=== PATIENT | female | born 1945 | race Caucasian/White ===

== ENCOUNTER 2020-09-18 15:53 | Inpatient (IN) | payer MEDICARE, SELFPAY ==
[2020-09-18] VITALS (69 sets, daily range): BP systolic 146–202; BP diastolic 86–155; PULSE 69–121; RESP 10–29; TEMP 36.8; O2SAT 94–97
--- NOTE | 2020-09-18 15:45 | RT.EKG_ITS ---
APPROVED REPORT Exam: Resting ECG Reason for Exam: dizzy Patient Location: E HR:118 bpm ECG Measurements Heart Rate 118 AXIS WA 211 P 8 QRSd 86 QRS -39 QT 303 T 107 QTc 420 Conclusion Sinus tachycardia...rate> 99 Ventricular premature complex...V complex w/ short R-R interval Borderline prolonged WA interval...WA >207, V-rate 91-120 LVH with secondary repolarization abnormality...multi-LVH criteria, abnrm ST-T Anterior infarct, old...Q >40mS, abnormal ST-T, V2-V5. Sinus. LVH. PVCs. No STEMI. I have reviewed and interpreted ECG and agree with software generated interpretation.
[2020-09-18 16:25] LABS: Abs Immature Grans 0.02 10^3/uL (0.0-0.06); Absolute Basophil Count 0.04 10^3/uL (0.0-0.2); Absolute Eosinophil Count 0.02 10^3/uL (0.0-0.7); Absolute Lymphocyte Count 1.88 10^3/uL (1.2-3.4); Absolute Monocyte Count 0.63 10^3/uL (0.1-0.8); Absolute Neutrophil Count 5.84 10^3/uL (1.2-6.7); Basophils % 0.5; Eosinophils % 0.2; HCT 45.3 % (36.0-46.0); HGB 14.9 g/dL (11.2-15.7); Immature Grans % 0.2; Lymphocytes % 22.3; MCH 27.3 pg (27.0-33.0); MCHC 32.9 % (32.0-36.0); MCV 83.1 fL (80-95); MPV 9.5 fL (8.0-11.0); Monocytes % 7.5; Neutrophils % 69.3; Nucleated RBC 0 %; Platelet Count 279 10^3/uL (130-400); RBC 5.45 10^6/uL (3.93-5.22); RDW 14.3 % (11.7-14.6); RDW-SD 42.7 fL; WBC 8.43 10^3/uL (4.4-10.8)
[2020-09-18 16:39] LABS: ALT 20 U/L (14-59); AST 13 U/L (15-37); Albumin 3.8 g/dL (3.4-5.0); Alkaline Phosphatase 84 U/L (46-116); Anion Gap 12.3 mmol/L (3-11); BUN 16 mg/dL (7-18); Bilirubin, Total 0.4 mg/dL (0.2-1.0); CO2 25.7 mmol/L (21.0-32.0); CREATININE 1.2 mg/dL (0.55-1.02); Calcium 10.6 mg/dL (8.5-10.1); Chloride 103 mmol/L (98-107); Estimated GFR 43.56 (mL/min/1.73m2); Glucose 133 mg/dL (74-106); Magnesium 2.1 mg/dL (1.8-2.4); Potassium 3.3 mmol/L (3.5-5.1); Sodium 141 mmol/L (136-145); Total Protein 7.6 g/dL (6.4-8.2)
[2020-09-18 16:59] LABS: Troponin I < 0.05 ng/mL (<0.06)
[2020-09-18 17:03] LABS: NT-proBNP 266 pg/mL (<300)
[2020-09-18 17:05] LABS: TSH (W/Ref FT4) 1.16 uIU/mL (0.36-3.74)
[2020-09-18 17:16] LABS: D-Dimer 630 ng/mlFEU (<500)
--- NOTE | 2020-09-18 18:15 | DI.CT_ITS ---
Exam(s) CT CHEST PE CTA EXAM: CT CHEST PE CTA CLINICAL HISTORY: tachycardia, intermittent SVT, elevated ddimer. TECHNIQUE: Imaging Protocol: CT angiography of the chest was performed using pulmonary embolus luz maria col. Multi planar reconstructions were performed. CONTRAST MATERIAL: Intravenous: Omnipaque 350 Contrast volume: 100 cc COMPARISON: No exams were available for comparison FINDINGS: CHEST: Incidentally noted is a concerning spiculated mass in the right breast which measures 2.7 x 1. 5 cm. Requires dedicated breast imaging to rule out malignancy. There appears to be associated skin retraction. PULMONARY ARTERIES: There are no intraluminal filling defects to suggest acute pulmonary emboli. LUNGS: There are no infiltrates nor evidence of pulmonary infarction.. Mild increased markings in the right lung base posterior basal segment. No pleural effusions. No significant findings in trachea and mainstem bronchi. MEDIASTINUM: There is no hilar nor mediastinal adenopathy. Visualized thyroid unremarkable. CARDIAC: Mild cardiomegaly. Small pericardial effusion which is posterior left-sided and exhibits ma ximum diameter 7 millimeters.There is enlargement of the ascending thoracic aorta which is exhibits d iameter 4.6 cm.. Aortic arch diameter is upper normal. Descending thoracic aorta diameter is upper normal. There is no significant shift of the interventricular septum. PARTIALLY VISUALIZED UPPERMOST ABDOMEN: There is cysts in the liver noted. The largest is in the rig ht hepatic lobe and measures 3.9 x 3.8 cm. There is also a cyst in the right kidney measuring 3 x 3 cm. Entire kidneys are not included in the field of view. No significant adrenal masses. No spleno megaly. OSSEOUS: No significant osseous lesions.. IMPRESSION: 1. No evidence of acute pulmonary emboli. No evidence of pulmonary infarction.Mild increased marking s in the right lung base posterior basal segment right lower lobe. No pleural effusions. No pneumot horax. 2. There is a solid spiculated mass in the right breast measuring approximately 2.7 x 1.5 centimeter, suspicious for malignancy. Recommend mammogram and breast ultrasound. 3. Ascending thoracic aorta aneurysm which exhibits diameter 4.6 cm. No dissection. 4. Small pericardial effusion. 5. Liver and right renal cysts as described above. RADIATION DOSE DELIVERED: 427.59mGy.cm Total DLP DATA REPOSITORY: All CT scans at this facility are submitted to the National Radiology Data Registry (NRDR) Dose Index Registry (DIR) with the [employer] (A[employer]). RADIATION OPTIMIZATION: All CT scans at this facility use at least one of these dose optimization te chniques: automated exposure control; mA and/or kV adjustment per patient size (includes targeted exa ms where dose is matched to clinical indication); or iterative reconstruction.
--- NOTE | 2020-09-18 18:21 | ED.GENADUL_ITS ---
Discharge Plan Disposition Patient Disposition: [facility] INPATIENT Condition: Serious Discharge Details Clinical Impression: Tachycardia, Hypertension, Nonsustained supraventricular tachycardia Primary Care Provider: Tamela Foreman ED Provider: Jim Velez Home Meds and New Rx's Prescriptions: No Action fexofenadine [Marina] 180 mg Tablet 180 mg PO DAILY RF: 0 Multi Vitamin 9 mg iron/15 mL Liquid PO RF: 0 Medical Decision Making 1842??75-year-old female here with intermittent presyncope over the past 2 weeks, more frequent recently. Patient is tachycardic and hypertensive with no history of hypertension. EKG was reviewed and interpreted by me: Sinus tachycardia 118 bpm, borderline prolonged IL interval of 211, QTC 420. While I was evaluating the patient she had an episode on cardiac nurse practitioner that I observed with heart rate of 150s to 170s that appeared narrow complex and regular consistent with most likely supraventricular tachycardia. Patient did not have palpitations during this episode and occurred while she was seated in the stretcher at rest. My suspicion is that she is having intermittent arrhythmia as etiology for presyncope. I considered other etiologies including electrolyte abnormalities and thyroid dysfunction. Patient does have mild depressed potassium of 3.3. I will give potassium chloride 20 mEq. I considered myocarditis and troponin is negative. A BNP was ordered given newly elevated blood pressure and a sensation of chest pressure that she has some possible presyncope. BNP negative. D-dimer is mildly elevated I will proceed to CT of the chest. -- CT chest interpreted by radiology: IMPRESSION: 1. No evidence for pulmonary embolism. 2. A solid mass in the right breast measuring 2.5 cm x 1.5 cm. Recommend correlation with patient's mammography. 3. Pericardial effusion. 4. Ascending thoracic aortic aneurysm. 5. Hepatic and right renal cysts. Patient remains tachycardic and hypertensive. I will give labetalol 20 mg IV. --I called and spoke with Dr. Patel and discussed ED presentation and course, he will admit the patient. Patient was reassessed and blood pressure and heart rate both improved after labetalol. Lab Data Lab results reviewed: Yes I reviewed the patient's lab results. Labs: Laboratory Tests Range/Units 09/18/20 09/18/20 09/18/20 16:10 16:10 16:10 WBC (4.4-10.8) 10^3/uL 8.43 RBC (3.93-5.22) 10^6/uL 5.45 H Hgb (11.2-15.7) g/dL 14.9 Hct (36.0-46.0) % 45.3 MCV (80-95) fL 83.1 MCH (27.0-33.0) pg 27.3 MCHC (32.0-36.0) % 32.9 RDW (11.7-14.6) % 14.3 Plt Count (130-400) 10^3/uL 279 MPV (8.0-11.0) fL 9.5 Immature Gran % 0.2 Neutrophils % 69.3 Lymphocytes % 22.3 Monocytes % 7.5 Eosinophils % 0.2 Basophils % 0.5 Nucleated RBC % % 0 Absolute Neutrophils (1.2-6.7) 10^3/uL 5.84 Absolute Lymphocytes (1.2-3.4) 10^3/uL 1.88 Absolute Monocytes (0.1-0.8) 10^3/uL 0.63 Absolute Eosinophils (0.0-0.7) 10^3/uL 0.02 Absolute Basophils (0.0-0.2) 10^3/uL 0.04 D-Dimer (<500) ng/mlFEU Sodium (136-145) mmol/L 141 Potassium (3.5-5.1) mmol/L 3.3 L Chloride (98-107) mmol/L 103 Carbon Dioxide (21.0-32.0) mmol/L 25.7 Anion Gap (3-11) mmol/L 12.3 H BUN (7-18) mg/dL 16 Creatinine (0.55-1.02) mg/dL 1.2 H Estimated GFR/1.73 m2 (mL/min/1.73m2) 43.56 Glucose (74-106) mg/dL 133 H Calcium (8.5-10.1) mg/dL 10.6 H Magnesium (1.8-2.4) mg/dL 2.1 Total Bilirubin (0.2-1.0) mg/dL 0.4 AST (15-37) U/L 13 L ALT (14-59) U/L 20 Alkaline Phosphatase (46-116) U/L 84 Troponin I (<0.06) ng/mL < 0.05 NT-Pro-B Natriuret Pep (<300) pg/mL Total Protein (6.4-8.2) g/dL 7.6 Albumin (3.4-5.0) g/dL 3.8 TSH (0.36-3.74) uIU/mL COVID-19 Source SARS-CoV-2 (PCR) Range/Units 09/18/20 09/18/20 09/18/20 16:10 16:10 16:10 WBC (4.4-10.8) 10^3/uL RBC (3.93-5.22) 10^6/uL Hgb (11.2-15.7) g/dL Hct (36.0-46.0) % MCV (80-95) fL MCH (27.0-33.0) pg MCHC (32.0-36.0) % RDW (11.7-14.6) % Plt Count (130-400) 10^3/uL MPV (8.0-11.0) fL Immature Gran % Neutrophils % Lymphocytes % Monocytes % Eosinophils % Basophils % Nucleated RBC % % Absolute Neutrophils (1.2-6.7) 10^3/uL Absolute Lymphocytes (1.2-3.4) 10^3/uL Absolute Monocytes (0.1-0.8) 10^3/uL Absolute Eosinophils (0.0-0.7) 10^3/uL Absolute Basophils (0.0-0.2) 10^3/uL D-Dimer (<500) ng/mlFEU 630 H Sodium (136-145) mmol/L Potassium (3.5-5.1) mmol/L Chloride (98-107) mmol/L Carbon Dioxide (21.0-32.0) mmol/L Anion Gap (3-11) mmol/L BUN (7-18) mg/dL Creatinine (0.55-1.02) mg/dL Estimated GFR/1.73 m2 (mL/min/1.73m2) Glucose (74-106) mg/dL Calcium (8.5-10.1) mg/dL Magnesium (1.8-2.4) mg/dL Total Bilirubin (0.2-1.0) mg/dL AST (15-37) U/L ALT (14-59) U/L Alkaline Phosphatase (46-116) U/L Troponin I (<0.06) ng/mL NT-Pro-B Natriuret Pep (<300) pg/mL 266 Total Protein (6.4-8.2) g/dL Albumin (3.4-5.0) g/dL TSH (0.36-3.74) uIU/mL 1.16 COVID-19 Source SARS-CoV-2 (PCR) Range/Units 09/18/20 09/18/20 21:02 21:10 WBC (4.4-10.8) 10^3/uL RBC (3.93-5.22) 10^6/uL Hgb (11.2-15.7) g/dL Hct (36.0-46.0) % MCV (80-95) fL MCH (27.0-33.0) pg MCHC (32.0-36.0) % RDW (11.7-14.6) % Plt Count (130-400) 10^3/uL MPV (8.0-11.0) fL Immature Gran % Neutrophils % Lymphocytes % Monocytes % Eosinophils % Basophils % Nucleated RBC % % Absolute Neutrophils (1.2-6.7) 10^3/uL Absolute Lymphocytes (1.2-3.4) 10^3/uL Absolute Monocytes (0.1-0.8) 10^3/uL Absolute Eosinophils (0.0-0.7) 10^3/uL Absolute Basophils (0.0-0.2) 10^3/uL D-Dimer (<500) ng/mlFEU Sodium (136-145) mmol/L Potassium (3.5-5.1) mmol/L Chloride (98-107) mmol/L Carbon Dioxide (21.0-32.0) mmol/L Anion Gap (3-11) mmol/L BUN (7-18) mg/dL Creatinine (0.55-1.02) mg/dL Estimated GFR/1.73 m2 (mL/min/1.73m2) Glucose (74-106) mg/dL Calcium (8.5-10.1) mg/dL Magnesium (1.8-2.4) mg/dL Total Bilirubin (0.2-1.0) mg/dL AST (15-37) U/L ALT (14-59) U/L Alkaline Phosphatase (46-116) U/L Troponin I (<0.06) ng/mL NT-Pro-B Natriuret Pep (<300) pg/mL Total Protein (6.4-8.2) g/dL Albumin (3.4-5.0) g/dL TSH (0.36-3.74) uIU/mL COVID-19 Source Cancelled Nasal/Nares SARS-CoV-2 (PCR) Cancelled HPI General Mode of arrival: ambulatory . Date/Time Provider Initiated Documentation: 09/18/20 15:54 . Limitations to Documentation: no limitations . Information obtained by: patient . HPI Narrative: 75-year-old female presents with chief complaint of dizziness. Patient notes that over the past 2 weeks she has had intermittent episodes of lightheadedness where she feels like she is going to pass out. She has never experienced anything similar in the past. She notes initially episode occurred 1-2 times in the afternoon a few times the first week and then more frequently this past week. Episodes are brief lasting seconds to minutes. She notes that when she rests it seems to improve symptoms. She has no associated palpitations during episodes. She does note that during the episodes she feels slightly out of breath with some mild tightness in her chest. She has no chest pain or shortness of breath at this time. No leg swelling or calf pain. Patient was seen by her primary care physician today who advised to come to the emergency room for evaluation. Patient does not consume alcohol or use drugs. She does note that she has 2 caffeinated beverages a day. Related Data Home Medications Medication Instructions Recorded Confirmed fexofenadine [Marina] 180 mg PO DAILY 09/18/20 09/18/20 [id number] fumarate ml PO 09/18/20 [Multi Vitamin] Allergies Allergy/AdvReac Type Severity Reaction Status Date / Time No Known Allergies Allergy Unverified 09/18/20 16:14 General Stated Complaint: Dizzy/Sync RICHI: 2 Review of Systems All systems reviewed & are unremarkable except as noted in HPI and below Constitutional Constitutional: Denies fever(s), Denies headache(s) and Denies weakness ENT Ears, Nose, Mouth, and Throat: Reports dizziness and Denies headache(s) Cardiovascular Cardiovascular: Reports as per HPI, Denies chest pain, Denies rapid heart rate and Denies dyspnea Respiratory Respiratory: Denies cough and Denies dyspnea Musculoskeletal Musculoskeletal: Denies numbness and Denies tingling Neurologic Neurologic: Denies abnormal speech, Reports dizziness, Denies headache(s), Denies localized weakness, Denies numbness, Denies sensory deficit, Denies tingling and Denies weakness [facility] Social History Smoking risk assessment performed?: No Exam Const General: cooperative and no acute distress [facility] Head: normocephalic and atraumatic Mouth: moist mucous membranes Eyes Conjunctivae: normal conjunctivae Sclera: normal sclerae EOM: EOM intact bilaterally Neck Neck: trachea midline and supple Resp Auscultation: clear to auscultation bilaterally, no rales, no rhonchi and no wheezes Cardio Jugular venous pressure: no JVD Rate: tachycardic Rhythm: abnormal rhythm GI Palpation: soft, not firm, no guarding, no masses, not rigid and nontender Skin General skin exam: no rashes or lesions noted Neuro General: patient alert, patient awake, patient oriented x3 and tone normal Cognition: normal cognition Speech: speech normal Motor: muscle tone normal throughout and strength 5/5 throughout Sensory Exam: no sensory deficits noted Coordination: [id number] test normal and [id number] test normal Extrem General: no edema Psych Appearance: grossly normal Mental Status: mental status grossly normal Speech and Movement: speech and movement normal Course Vital Signs Vital signs: Vital Signs Temperature 36.8 C 09/18/20 16:08 Pulse 115 H 09/18/20 16:08 Respiratory Rate 20 09/18/20 16:08 Blood Pressure 168/111 H 09/18/20 16:08 Pulse Oximetry 97 09/18/20 16:08 Temperature 36.8 C 09/18/20 16:08 Temperature Source Temporal Artery Scan 09/18/20 16:08 Pulse 108 H 09/18/20 16:24 Pulse 111 H 09/18/20 16:50 Respiratory Rate 22 09/18/20 16:50 Blood Pressure 156/97 H 09/18/20 16:24 Blood Pressure Mean 110 09/18/20 16:24 Pulse Oximetry 97 09/18/20 16:50 Oxygen Delivery Method Room Air 09/18/20 16:08 Oxygen Flow Rate 0 09/18/20 16:08 Pain Level 0 09/18/20 16:08 Lab/Test Results Lab/Test Results: Laboratory Tests Range/Units 09/18/20 09/18/20 09/18/20 16:10 16:10 16:10 WBC (4.4-10.8) 10^3/uL 8.43 RBC (3.93-5.22) 10^6/uL 5.45 H Hgb (11.2-15.7) g/dL 14.9 Hct (36.0-46.0) % 45.3 MCV (80-95) fL 83.1 MCH (27.0-33.0) pg 27.3 MCHC (32.0-36.0) % 32.9 RDW (11.7-14.6) % 14.3 Plt Count (130-400) 10^3/uL 279 MPV (8.0-11.0) fL 9.5 Immature Gran % 0.2 Neutrophils % 69.3 Lymphocytes % 22.3 Monocytes % 7.5 Eosinophils % 0.2 Basophils % 0.5 Nucleated RBC % % 0 Absolute Neutrophils (1.2-6.7) 10^3/uL 5.84 Absolute Lymphocytes (1.2-3.4) 10^3/uL 1.88 Absolute Monocytes (0.1-0.8) 10^3/uL 0.63 Absolute Eosinophils (0.0-0.7) 10^3/uL 0.02 Absolute Basophils (0.0-0.2) 10^3/uL 0.04 D-Dimer (<500) ng/mlFEU Sodium (136-145) mmol/L 141 Potassium (3.5-5.1) mmol/L 3.3 L Chloride (98-107) mmol/L 103 Carbon Dioxide (21.0-32.0) mmol/L 25.7 Anion Gap (3-11) mmol/L 12.3 H BUN (7-18) mg/dL 16 Creatinine (0.55-1.02) mg/dL 1.2 H Estimated GFR/1.73 m2 (mL/min/1.73m2) 43.56 Glucose (74-106) mg/dL 133 H Calcium (8.5-10.1) mg/dL 10.6 H Magnesium (1.8-2.4) mg/dL 2.1 Total Bilirubin (0.2-1.0) mg/dL 0.4 AST (15-37) U/L 13 L ALT (14-59) U/L 20 Alkaline Phosphatase (46-116) U/L 84 Troponin I (<0.06) ng/mL < 0.05 NT-Pro-B Natriuret Pep (<300) pg/mL Total Protein (6.4-8.2) g/dL 7.6 Albumin (3.4-5.0) g/dL 3.8 TSH (0.36-3.74) uIU/mL Range/Units 09/18/20 09/18/20 09/18/20 16:10 16:10 16:10 WBC (4.4-10.8) 10^3/uL RBC (3.93-5.22) 10^6/uL Hgb (11.2-15.7) g/dL Hct (36.0-46.0) % MCV (80-95) fL MCH (27.0-33.0) pg MCHC (32.0-36.0) % RDW (11.7-14.6) % Plt Count (130-400) 10^3/uL MPV (8.0-11.0) fL Immature Gran % Neutrophils % Lymphocytes % Monocytes % Eosinophils % Basophils % Nucleated RBC % % Absolute Neutrophils (1.2-6.7) 10^3/uL Absolute Lymphocytes (1.2-3.4) 10^3/uL Absolute Monocytes (0.1-0.8) 10^3/uL Absolute Eosinophils (0.0-0.7) 10^3/uL Absolute Basophils (0.0-0.2) 10^3/uL D-Dimer (<500) ng/mlFEU 630 H Sodium (136-145) mmol/L Potassium (3.5-5.1) mmol/L Chloride (98-107) mmol/L Carbon Dioxide (21.0-32.0) mmol/L Anion Gap (3-11) mmol/L BUN (7-18) mg/dL Creatinine (0.55-1.02) mg/dL Estimated GFR/1.73 m2 (mL/min/1.73m2) Glucose (74-106) mg/dL Calcium (8.5-10.1) mg/dL Magnesium (1.8-2.4) mg/dL Total Bilirubin (0.2-1.0) mg/dL AST (15-37) U/L ALT (14-59) U/L Alkaline Phosphatase (46-116) U/L Troponin I (<0.06) ng/mL NT-Pro-B Natriuret Pep (<300) pg/mL 266 Total Protein (6.4-8.2) g/dL Albumin (3.4-5.0) g/dL TSH (0.36-3.74) uIU/mL 1.16
[2020-09-18] MEDS: Omnipaque 350 MG/ML 100 ML BTL IV (19:16)
[2020-09-18] MEDS: Normal Saline - Diluent 50 ML VIAL IV (19:16)
--- NOTE | 2020-09-18 19:43 | DI.VRAD_ITS ---
PROCEDURE INFORMATION: Exam: CTA Chest With Contrast Exam date and time: 09/18/2020 6:21 PM Age: 75 years old Clinical indication: Other: Tachycardia, intermittent svt, elevated ddimer TECHNIQUE: Imaging protocol: Computed tomographic angiography of the chest with contrast. 3D rendering (Not supervised by radiologist): MIP and/or 3D reconstructed images were created by the technologist. Radiation optimization: All CT scans at this facility use at least one of these dose optimization techniques: automated exposure control; mA and/or kV adjustment per patient size (includes targeted exams where dose is matched to clinical indication); or iterative reconstruction. Contrast material: OMNIPAQUE 350; Contrast volume: 100 ml; Contrast route: INTRAVENOUS (IV); COMPARISON: No relevant prior studies available. FINDINGS: Pulmonary arteries: Unremarkable. No pulmonary emboli. Aorta: There is aneurysmal dilatation of the ascending thoracic aorta measuring 4.7 cm in diameter. No aortic dissection. Lungs: Unremarkable. No consolidation. No masses. Pleural spaces: Unremarkable. No pneumothorax. No pleural effusion. Heart: Unremarkable. No cardiomegaly. There is a thin posterior pericardial effusion measuring 7 mm in thickness. Lymph nodes: Unremarkable. No enlarged lymph nodes. Liver: There are cysts in the liver, the larger measuring 3.8 cm in diameter. Kidneys and ureters: There is a cyst in the right kidney. Bones/joints: Degenerative changes of the thoracic and lumbar spine. No acute fracture. Soft tissues: There is a solid mass in the right breast measuring 2.5 cm x 1.5 cm. IMPRESSION: 1. No evidence for pulmonary embolism. 2. A solid mass in the right breast measuring 2.5 cm x 1.5 cm. Recommend correlation with patient's mammography. 3. Pericardial effusion. 4. Ascending thoracic aortic aneurysm. 5. Hepatic and right renal cysts. Dictated and Authenticated by: Gerson Mulligan MD. Ordering:TERRY Fernandez MD
[2020-09-18] MEDS: Potassium Chloride 20 MEQ TABCR PO (20:40)
[2020-09-18] MEDS: Labetalol 100 MG/20 ML VIAL 20 MG IVP (20:42)
[2020-09-18 21:13] LABS: Source Nasal/Nares
--- NOTE | 2020-09-18 22:40 | HPE_ITS ---
Date of service: 09/18/20 Time of Service: 22:41 Assessment and Plan Assessment and plan (1) PSVT (paroxysmal supraventricular tachycardia): Status: Suspected Assessment and plan: begin BB (lopressor), check echocardiogram to r/o structural HD; will need TORI given her TAA; check serial troponin I; consult cardiology in the a.m.; replace electrolytes and repeat labs in the a.m. (2) Thoracic ascending aortic aneurysm: Status: Acute Assessment and plan: begin BB as above; control BP; arrange for cardiology to follow up w/ TORI (3) Hypertension: Status: Chronic Qualifiers: Hypertension type: essential hypertension Qualified Code(s): I10 - Essential (primary) hypertension (4) Breast mass, right: Status: Acute Assessment and plan: arrange mammogram upon discharge History of Present Illness History of Present Illness Chief Complaint: lightheadedness x 2 wks Narrative: 75 yr old healthy female presents to the ER w/ c/o of intermittent spells of lightheadness and near syncope w/ no acutal LOC. No associated palpitations but when these episodes occur they will last from a few seconds to couple of minutes and sometimes are associated w/ chest tightness and dyspnea. Upon presentation she denies any current chest pain/pressure or dyspnea. On arrival to the ER she is hypertensive w/ BP 168/111 and got up to as high as 202/133 and she was tachycardic w/ HR of 106 to 120 bpm. However, while in the ER she developed rapid regular narrow complex tachycardia w/ rates of 150's to 170's and was i nterpreted by Dr. Velez as PSVT. Her EKG take prior to her PSVT demonstrated sinus tachycardia @ 118 bpm w/ DE 211 msec, LVH w/ repolarization abnormalities, isolated PVC; possible old anterior infarct. Troponi I and BNP nand TSH were normal. Potassium was low at 3.3 but she was given oral replacment. Patient was treated w/ labetolol 20 mg IVP while in the ER w/ subsequent response in her BP to 147/86 and her HR to 75 bpm. She is now admitted for evaluation and treatment of PSVT and new onset HTN. CTA of her chest was performed and did not demonstrate any PE but demonstrated ascending T.A.A. 4.7 cm and also a 2.5 cm x 1.5 cm right breast mass. Patient has hx of lumpectomy in that breast 45 yr ago for fibrocystic breast disease. Review of Systems All systems reviewed & are unremarkable except as noted in HPI and below Cardiovascular Cardiovascular: Reports as per HPI Respiratory Respiratory: Reports as per HPI Integumentary/Breasts Skin/Breast: Denies breast pain and Denies breast mass [facility] Medical History (Updated 09/18/20 @ 23:28 by Charly Garnica) Fibrocystic breast disease (FCBD) Seasonal allergies Surgical History (Updated 09/18/20 @ 23:28 by Charly Garnica) Status post right breast lumpectomy Social History (Updated 09/18/20 @ 23:34 by Charly Garnica) Smoking/Tobacco Use Status: Never Smoking risk assessment performed?: Yes Alcohol Intake: never Household members: children Number of Children: 5 number of grandchildren: 7 Education Level: college 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 Meds Allergies and Home Medications Allergies Allergy/AdvReac Type Severity Reaction Status Date / Time No Known Allergies Allergy Unverified 09/18/20 16:14 Home Medications Medication Instructions Recorded Confirmed Type fexofenadine [Marina] 180 mg PO DAILY 09/18/20 09/18/20 History bgedwnus-aac-xueiazb fumarate ml PO 09/18/20 History [Multi Vitamin] Exam Narrative Exam Narrative: white female who is alert and oriented x 3 HEENT: unremarkable Neck: supple, no JVD, no thyromegaly; no lymphadenopathy; normal carotid pulses Lungs: clear Heart: regular rate and rhythm; no murmur or rub or gallop Abdomen: soft, nontender; no organomegaly Extremties: no peripheral edema or cyanosis; normal pulses Breasts: fibrocystic changes bilaterally w/ right breast feels more dense particularly at the 2 to 3 o'clock position; she has surgical scar over the right breast in this area; no axillary adenopathy Neuro: grossly normal; no CN deficits; no motor deficits Results Imaging CT scan - chest: report reviewed EKG: image reviewed Labs Result diagrams: 09/18/20 16:10 09/18/20 16:10 Labs: Laboratory Results - last 24 hr 09/18/20 09/18/20 09/18/20 16:10 16:10 16:10 WBC 8.43 RBC 5.45 H Hgb 14.9 Hct 45.3 MCV 83.1 MCH 27.3 MCHC 32.9 RDW 14.3 Plt Count 279 MPV 9.5 Immature Gran % 0.2 Neutrophils % 69.3 Lymphocytes % 22.3 Monocytes % 7.5 Eosinophils % 0.2 Basophils % 0.5 Nucleated RBC % 0 Absolute Neutrophils 5.84 Absolute Lymphocytes 1.88 Absolute Monocytes 0.63 Absolute Eosinophils 0.02 Absolute Basophils 0.04 D-Dimer Sodium 141 Potassium 3.3 L Chloride 103 Carbon Dioxide 25.7 Anion Gap 12.3 H BUN 16 Creatinine 1.2 H Estimated GFR/1.73 m2 43.56 Glucose 133 H Calcium 10.6 H Magnesium 2.1 Total Bilirubin 0.4 AST 13 L ALT 20 Alkaline Phosphatase 84 Troponin I < 0.05 NT-Pro-B Natriuret Pep Total Protein 7.6 Albumin 3.8 TSH COVID-19 Source SARS-CoV-2 (PCR) 09/18/20 09/18/20 09/18/20 16:10 16:10 16:10 WBC RBC Hgb Hct MCV MCH MCHC RDW Plt Count MPV Immature Gran % Neutrophils % Lymphocytes % Monocytes % Eosinophils % Basophils % Nucleated RBC % Absolute Neutrophils Absolute Lymphocytes Absolute Monocytes Absolute Eosinophils Absolute Basophils D-Dimer 630 H Sodium Potassium Chloride Carbon Dioxide Anion Gap BUN Creatinine Estimated GFR/1.73 m2 Glucose Calcium Magnesium Total Bilirubin AST ALT Alkaline Phosphatase Troponin I NT-Pro-B Natriuret Pep 266 Total Protein Albumin TSH 1.16 COVID-19 Source SARS-CoV-2 (PCR) 09/18/20 09/18/20 21:02 21:10 WBC RBC Hgb Hct MCV MCH MCHC RDW Plt Count MPV Immature Gran % Neutrophils % Lymphocytes % Monocytes % Eosinophils % Basophils % Nucleated RBC % Absolute Neutrophils Absolute Lymphocytes Absolute Monocytes Absolute Eosinophils Absolute Basophils D-Dimer Sodium Potassium Chloride Carbon Dioxide Anion Gap BUN Creatinine Estimated GFR/1.73 m2 Glucose Calcium Magnesium Total Bilirubin AST ALT Alkaline Phosphatase Troponin I NT-Pro-B Natriuret Pep Total Protein Albumin TSH COVID-19 Source Cancelled Nasal/Nares SARS-CoV-2 (PCR) Cancelled Last Vital Signs Temp 36.8 C 09/18/20 16:08 Pulse 77 09/18/20 22:01 Resp 17 09/18/20 22:20 BP 147/86 H 09/18/20 22:01 Pulse Ox 94 09/18/20 22:20
[2020-09-18 22:44] LABS: COVID-19 PCR Negative (Negative)
[2020-09-18 23:33] LABS: Potassium 3.1 mmol/L (3.5-5.1); Troponin I < 0.05 ng/mL (<0.06)
[2020-09-19] VITALS (251 sets, daily range): BP systolic 99–192; BP diastolic 46–121; PULSE 58–109; RESP 10–32; TEMP 36–37.6; O2SAT 92–99
[2020-09-19] MEDS: Metoprolol 25 MG TAB PO ×3 (00:28→12:02)
[2020-09-19 06:32] LABS: Anion Gap 10.1 mmol/L (3-11); BUN 17 mg/dL (7-18); CO2 26.9 mmol/L (21.0-32.0); CREATININE 1.2 mg/dL (0.55-1.02); Calcium 10.2 mg/dL (8.5-10.1); Chloride 106 mmol/L (98-107); Estimated GFR 43.56 (mL/min/1.73m2); Glucose 101 mg/dL (74-106); Potassium 3.4 mmol/L (3.5-5.1); Sodium 143 mmol/L (136-145)
[2020-09-19 06:34] LABS: Troponin I < 0.05 ng/mL (<0.06)
--- NOTE | 2020-09-19 08:00 | DI.US_ITS ---
APPROVED REPORT EXAM: Comprehensive 2D, Doppler, and color-flow Echocardiogram Patient Location: In-Patient Room/Bed: [id number] Director Of Development And Marketing: Nkechi Colby RDCS (AE) Indications: PSVT, Chest pain Other Information Study Quality: Adequate Conclusion Mild concentric left ventricular hypertrophy. Estimated ejection fraction is 60 to 65%. There are n o segmental wall motion abnormalities Normal right ventricular size and systolic function Both atria are normal in size Trileaflet mildly sclerotic aortic valve with trace regurgitation. No aortic stenosis Mitral annular calcification. Trace mitral regurgitation Normal tricuspid valve with trace regurgitation Normal pulmonic valve, trace pulmonic regurgitation Dilated ascending aorta measuring 4.76 cm Wall motion Left Ventricle The left ventricle is normal size. The left ventricular systolic function is normal. The left ventric ular ejection fraction is within the normal range. Mild concentric left ventricular hypertrophy. Ther e is normal LV segmental wall motion. There is no ventricular septal defect visualized. LVEF is 60-65 %. Right Ventricle The right ventricle is normal size. The right ventricular systolic function is normal. The RVSP is 15 .3 mmHg. Atria The left atrium size is normal. The right atrium size is normal. The interatrial septum is intact wit h no evidence for an atrial septal defect. Aortic Valve The Aortic valve is mildly sclerotic. Aortic valve is trileaflet. There is no aortic valvular stenosi s. Trace aortic regurgitation. Mitral Valve Moderate mitral annular calcification. No evidence of mitral valve stenosis. Trace mitral regurgitati on. Tricuspid Valve The tricuspid valve is normal in structure. There is no tricuspid valve stenosis. Trace tricuspid reg urgitation. Pulmonic Valve The pulmonary valve is normal in structure. There is no pulmonic valvular stenosis. Trace pulmonic re gurgitation. Great Vessels The aortic root is normal in size. The ascending aorta is dilated 4.76 cm Aortic arch is not well vis ualized. IVC is normal in size and collapses >50% with inspiration. Pericardium No significant pericardial effusion 2D Dimensions IVSD d PLAX 1.12 cm F: 0.6-1.0 LV Vol A2C d MOD 79.5 mL LVPW d PLAX 1.15 cm F: 0.6 - 1.0 LV Vol A4C d MOD 88.1 mL LVID d PLAX 4.20 cm F: 3.8 - 5.2 LA vol/ BSA A2C s A-L 18.5 mL/m2 LVDs 3.15 cm F: 2.2 - 3.5 LA vol/ BSA A4C s A-L 18.9 mL/m2 Ao Root d 3.22 cm F: 2.7 - 3.3 LA Vol/ BSA Biplane s A-L 18.8 mL/m2 RA Area A4C 13.39 cm2 LA Area A4C s MOD 14.16 cm2 RA Vol/ BSA A4C s A-L 16.5 mL/m2 LA Area A2C s MOD 14.04 cm2 Ao Asc Diam d 4.76 cm F: 2.3 - 3.1 LV EF A4C MOD 55.8 % LV EF Teichholz 49.0 % LV EF A2C MOD 53.2 % LVEF (Bonilla's) 54.79 % F: 54 - 74 LV EF Biplane MOD 54.8 % LV Volume 64.92 mL F: 46 - 106 SV 46.58 mL LV Volume Index 34.34 mL/m2 F: 29 - 61 SV Index 24.57 mL/m2 LV Vol Biplane MOD 85.0 mL FS 24.45 % M-Mode TAPSE 2.00 cm (M/F) >1.7 LV Diastology MV E' medial 0.079 (>0.07 m/s) E/A Ratio 0.8 LV E/e MED 10.75 (<14) MV E Vmax 0.86 (0.4-1.3 m/s) MV E' lateral 0.070 (>0.1 m/s) MV A Vmax 1.10 (0.4-1.3 m/s) LV E/e LAT 12.25 (<14) MV E/A Ratio 0.77 MV E/E' medial 10.77 MV E/E' lateral 12.28 Aortic Valve LVOT Area 2.86 cm2 AoV Area Vmax 2.32 cm2 LVOT Vmax 0.88 m/s AoV Area/ BSA (Vmax) 1.22 cm2/m2 LVOT Mean [place]. 0.58 m/s TIP Mean [place]. 2.11 cm2 LVOT Peak Grad 3.1 mmHg TIP Mean [place]. Index 1.11 cm2/m2 LVOT Mean Grad 1.6 mmHg LVOT VTI 0.186 m LVOT Diam s 1.90 cm AoV Vmax 1.09 m/s Velocity Ratio 0.80 AoV Mean [place]. 0.79 m/s AoV Peak Grad 4.7 mmHg LVOT SV 53.04 mL AoV Mean Grad 2.8 mmHg AoV VTI 0.238 m AoV Area VTI 2.23 cm2 AoV Area/ BSA (VTI) 1.17 cm/m2 Mitral Valve MV DT 240 (160-240 msec) MV PHT 70 msec MV Area PHT 3.16 cm2 MV VTI 0.324 m MV Area VTI 1.64 (4.0-6.0 cm2) Pulmonary Valve PV Vmax 0.66 (0.5-1.5 m/s) RVOT Peak Gr. 0.54 mmHg PV Peak Grad 1.7 mmHg RVOT Mean Gr. 0.30 mmHg PV Mean Grad 0.9 mmHg RVOT VTI 0.071 m PV VTI 0.165 m RVOT Vmax 0.37 m/s Tricuspid Valve TR Peak Grad 12.2 mmHg TR Vmax 1.75 m/s RA Pressure 3.00 mmHg RVSP (TR) 15.3 mmHg
--- NOTE | 2020-09-19 08:17 | W.PM.PROGNOT ---
Date of Service Date of service: 09/19/20 Time of Service: 16:05 Assessment and Plan Assessment and plan (1) PSVT (paroxysmal supraventricular tachycardia): Status: Suspected Assessment and plan: Titrate beta melyssa up. Echo w/o obvious abnormalities (TTE). Will need an outpatient TORI given her TAA. No ACS on this admission. (2) Thoracic ascending aortic aneurysm: Status: Acute Assessment and plan: Titrate beta melyssa up. (3) Hypertension: Status: Chronic Assessment and plan: As above Qualifiers: Hypertension type: essential hypertension Qualified Code(s): I10 - Essential (primary) hypertension (4) Breast mass, right: Status: Acute Assessment and plan: Given fibrocystic breasts, ultrasound may be a better option. WIll arrange on discharge. (5) Panic attack: Status: Resolved Assessment and plan: Will trial prn ativan if the patient's panicky feelings return and do not correspond to findings on tele. (6) DVT prophylaxis: Status: Acute Assessment and plan: enoxaparin (7) Discharge planning issues: Status: Acute Assessment and plan: Full code Anticipate discharge home tomorrow with a cardiac event recorder Subjective Subjective Interval history since last seen: Ms Pham had a panicky feeling when her bed was being switched out this afternoon - three unfamiliar people had come in to her room and she noticed herself feeling sweaty palms, feet, feeling like her ears were clogged. She has not had any palpitations or dizziness, chest pain, shortness of breath, or nausea. Up until about 2 pm, she had only NSR on her tele. Then, runs of ST started. The patient is relatively asymptomatic of them, but admits to anxiety/panicky feeling independent of palpitations. We discussed that anxiety could be driving higher heart rates and high heart rates could be driving anxiety. I did recommend finding a therapist and considering medical therapy for anxiety to help identify which problem is primary. 20 beat run of SVT at 01:04 while asleep. 96% O2 sat at that time. No apnea at that time. BPs 99/54 around the time of the run. BP 149/99. HR 56. No O2 required overnight. O2 sat lowest 92%. Exam Narrative Exam Narrative: General: Pleasant anxious elderly female, A&ox3, sitting comfortably in a chair HEENT: EOMI, MMM Heart: RRR, no m/r/g (several runs of ST seen while I am in the room on her monitor) Lungs: CTAB Abdomen: soft, nontender, nondistended Extremities: no edema BLE's Objective Last Vital Signs Temp 36 C L 09/19/20 02:32 Pulse 106 H 09/19/20 06:01 Resp 11 L 09/19/20 06:20 BP 136/85 09/19/20 06:01 Pulse Ox 96 09/19/20 06:20 Laboratory Results - last 24 hr 09/18/20 09/18/20 09/18/20 16:10 16:10 16:10 WBC 8.43 RBC 5.45 H Hgb 14.9 Hct 45.3 MCV 83.1 MCH 27.3 MCHC 32.9 RDW 14.3 Plt Count 279 MPV 9.5 Immature Gran % 0.2 Neutrophils % 69.3 Lymphocytes % 22.3 Monocytes % 7.5 Eosinophils % 0.2 Basophils % 0.5 Nucleated RBC % 0 Absolute Neutrophils 5.84 Absolute Lymphocytes 1.88 Absolute Monocytes 0.63 Absolute Eosinophils 0.02 Absolute Basophils 0.04 D-Dimer Sodium 141 Potassium 3.3 L Chloride 103 Carbon Dioxide 25.7 Anion Gap 12.3 H BUN 16 Creatinine 1.2 H Estimated GFR/1.73 m2 43.56 Glucose 133 H Calcium 10.6 H Magnesium 2.1 Total Bilirubin 0.4 AST 13 L ALT 20 Alkaline Phosphatase 84 Troponin I < 0.05 NT-Pro-B Natriuret Pep Total Protein 7.6 Albumin 3.8 TSH COVID-19 Source SARS-CoV-2 (PCR) 09/18/20 09/18/20 09/18/20 16:10 16:10 16:10 WBC RBC Hgb Hct MCV MCH MCHC RDW Plt Count MPV Immature Gran % Neutrophils % Lymphocytes % Monocytes % Eosinophils % Basophils % Nucleated RBC % Absolute Neutrophils Absolute Lymphocytes Absolute Monocytes Absolute Eosinophils Absolute Basophils D-Dimer 630 H Sodium Potassium Chloride Carbon Dioxide Anion Gap BUN Creatinine Estimated GFR/1.73 m2 Glucose Calcium Magnesium Total Bilirubin AST ALT Alkaline Phosphatase Troponin I NT-Pro-B Natriuret Pep 266 Total Protein Albumin TSH 1.16 COVID-19 Source SARS-CoV-2 (PCR) 09/18/20 09/18/20 09/18/20 21:02 21:10 23:13 WBC RBC Hgb Hct MCV MCH MCHC RDW Plt Count MPV Immature Gran % Neutrophils % Lymphocytes % Monocytes % Eosinophils % Basophils % Nucleated RBC % Absolute Neutrophils Absolute Lymphocytes Absolute Monocytes Absolute Eosinophils Absolute Basophils D-Dimer Sodium Potassium 3.1 L Chloride Carbon Dioxide Anion Gap BUN Creatinine Estimated GFR/1.73 m2 Glucose Calcium Magnesium Total Bilirubin AST ALT Alkaline Phosphatase Troponin I < 0.05 NT-Pro-B Natriuret Pep Total Protein Albumin TSH COVID-19 Source Cancelled Nasal/Nares SARS-CoV-2 (PCR) Cancelled Negative 09/19/20 05:48 WBC RBC Hgb Hct MCV MCH MCHC RDW Plt Count MPV Immature Gran % Neutrophils % Lymphocytes % Monocytes % Eosinophils % Basophils % Nucleated RBC % Absolute Neutrophils Absolute Lymphocytes Absolute Monocytes Absolute Eosinophils Absolute Basophils D-Dimer Sodium 143 Potassium 3.4 L Chloride 106 Carbon Dioxide 26.9 Anion Gap 10.1 BUN 17 Creatinine 1.2 H Estimated GFR/1.73 m2 43.56 Glucose 101 Calcium 10.2 H Magnesium Total Bilirubin AST ALT Alkaline Phosphatase Troponin I < 0.05 NT-Pro-B Natriuret Pep Total Protein Albumin TSH COVID-19 Source SARS-CoV-2 (PCR) Echo: Mild concentric left ventricular hypertrophy. Estimated ejection fraction is 60 to 65%. There are no segmental wall motion abnormalities Normal right ventricular size and systolic function Both atria are normal in size Trileaflet mildly sclerotic aortic valve with trace regurgitation. No aortic stenosis Mitral annular calcification. Trace mitral regurgitation Normal tricuspid valve with trace regurgitation Normal pulmonic valve, trace pulmonic regurgitation Dilated ascending aorta measuring 4.76 cm
--- NOTE | 2020-09-19 09:03 | CCONE_ITS ---
Date of service: 09/19/20 Time of Service: 09:04 Assessment and Plan Assessment and plan (1) PSVT (paroxysmal supraventricular tachycardia): Status: Suspected (2) Hypertension: Status: Chronic Assessment and plan: The patient appears to be responding to treatment with beta-blockers for both hypertension and her supraventricular tachycardia. An echocardiogram has been performed, results are pending. She will require further evaluation for the right breast mass. Some of that may need to be performed as an outpatient Current management is appropriate, I have no other specific cardiac recommendations Qualifiers: Hypertension type: essential hypertension Qualified Code(s): I10 - Essential (primary) hypertension History of Present Illness History of Present Illness Chief Complaint: Lightheaded, SVT, hypertension Narrative: This is a 75-year-old woman who was referred to the emergency room because of episodic lightheaded spells. Patient reports that she was well until approximately 2 weeks prior to presentation. She began then to have episodes where she would feel lightheaded have to bend over in order to avoid passing out. They would last for several minutes. Because of the symptoms she went to her primary care provider in [place] who evaluated her and referred her to the ER. In the ER she was noted to be hypertensive and also to have episodic paroxysmal supraventricular tachycardia. She has been started on beta-blockers after initial treatment with labetalol. Currently she is resting comfortably in the intensive care unit heart rate is in the 80s and blood pressure 146/99 Patient denies any past history of hypertension or really of any significant medical illness. She denies any significant surgical history other than a breast biopsy on the right 45 years ago. She has 5 children. She has a history of panic attacks though these are not recent. She describes very good exercise tolerance for age without concerning symptoms of shortness of breath or chest discomfort EKG showed sinus tachycardia, poor R wave progression Telemetry monitoring has disclosed a narrow complex supraventricular tachycardia rate 1 50-1 70 There is no evidence of myocardial necrosis A CAT scan of the chest showed a dilated ascending aorta, insignificant pericardial effusion, and a right breast mass Consults Consult date: 09/19/20 Requesting physician: Charly Garnica Review of Systems Cardiovascular Cardiovascular: Reports as per HPI, Denies chest pain, Denies chest pain at rest, Reports lightheadedness and Denies dyspnea on exertion Comments: Near syncope Respiratory Respiratory: Denies dyspnea on exertion [facility] Medical History Fibrocystic breast disease (FCBD) Seasonal allergies Surgical History Status post right breast lumpectomy Social History Smoking/Tobacco Use Status: Never Smoking risk assessment performed?: Yes Alcohol Intake: never Household members: children Number of Children: 5 number of grandchildren: 7 Education Level: college 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 Exam Narrative Exam Narrative: Well-developed well-nourished no acute distress looks younger than stated age Eyes EOM: EOM intact bilaterally Neck Other: Neck is supple trachea is midline carotid pulsations are normal I hear no bruits Resp Auscultation: clear to auscultation bilaterally Cardio Jugular venous pressure: no JVD Palpation: normal PMI Rate: regular rate Rhythm: regular rhythm Heart Sounds: S1 normal and S2 normal Other: No murmur or gallop Extrem Other: No peripheral edema Results Last Vital Signs Temp 36 C L 09/19/20 02:32 Pulse 106 H 09/19/20 06:01 Resp 11 L 09/19/20 06:20 BP 136/85 09/19/20 06:01 Pulse Ox 96 09/19/20 06:20 Labs Result diagrams: 09/18/20 16:10 09/19/20 05:48 Labs: Laboratory Results - last 24 hr 09/18/20 09/18/20 09/18/20 16:10 16:10 16:10 WBC 8.43 RBC 5.45 H Hgb 14.9 Hct 45.3 MCV 83.1 MCH 27.3 MCHC 32.9 RDW 14.3 Plt Count 279 MPV 9.5 Immature Gran % 0.2 Neutrophils % 69.3 Lymphocytes % 22.3 Monocytes % 7.5 Eosinophils % 0.2 Basophils % 0.5 Nucleated RBC % 0 Absolute Neutrophils 5.84 Absolute Lymphocytes 1.88 Absolute Monocytes 0.63 Absolute Eosinophils 0.02 Absolute Basophils 0.04 D-Dimer Sodium 141 Potassium 3.3 L Chloride 103 Carbon Dioxide 25.7 Anion Gap 12.3 H BUN 16 Creatinine 1.2 H Estimated GFR/1.73 m2 43.56 Glucose 133 H Calcium 10.6 H Magnesium 2.1 Total Bilirubin 0.4 AST 13 L ALT 20 Alkaline Phosphatase 84 Troponin I < 0.05 NT-Pro-B Natriuret Pep Total Protein 7.6 Albumin 3.8 TSH COVID-19 Source SARS-CoV-2 (PCR) 09/18/20 09/18/20 09/18/20 16:10 16:10 16:10 WBC RBC Hgb Hct MCV MCH MCHC RDW Plt Count MPV Immature Gran % Neutrophils % Lymphocytes % Monocytes % Eosinophils % Basophils % Nucleated RBC % Absolute Neutrophils Absolute Lymphocytes Absolute Monocytes Absolute Eosinophils Absolute Basophils D-Dimer 630 H Sodium Potassium Chloride Carbon Dioxide Anion Gap BUN Creatinine Estimated GFR/1.73 m2 Glucose Calcium Magnesium Total Bilirubin AST ALT Alkaline Phosphatase Troponin I NT-Pro-B Natriuret Pep 266 Total Protein Albumin TSH 1.16 COVID-19 Source SARS-CoV-2 (PCR) 09/18/20 09/18/20 09/18/20 21:02 21:10 23:13 WBC RBC Hgb Hct MCV MCH MCHC RDW Plt Count MPV Immature Gran % Neutrophils % Lymphocytes % Monocytes % Eosinophils % Basophils % Nucleated RBC % Absolute Neutrophils Absolute Lymphocytes Absolute Monocytes Absolute Eosinophils Absolute Basophils D-Dimer Sodium Potassium 3.1 L Chloride Carbon Dioxide Anion Gap BUN Creatinine Estimated GFR/1.73 m2 Glucose Calcium Magnesium Total Bilirubin AST ALT Alkaline Phosphatase Troponin I < 0.05 NT-Pro-B Natriuret Pep Total Protein Albumin TSH COVID-19 Source Cancelled Nasal/Nares SARS-CoV-2 (PCR) Cancelled Negative 09/19/20 05:48 WBC RBC Hgb Hct MCV MCH MCHC RDW Plt Count MPV Immature Gran % Neutrophils % Lymphocytes % Monocytes % Eosinophils % Basophils % Nucleated RBC % Absolute Neutrophils Absolute Lymphocytes Absolute Monocytes Absolute Eosinophils Absolute Basophils D-Dimer Sodium 143 Potassium 3.4 L Chloride 106 Carbon Dioxide 26.9 Anion Gap 10.1 BUN 17 Creatinine 1.2 H Estimated GFR/1.73 m2 43.56 Glucose 101 Calcium 10.2 H Magnesium Total Bilirubin AST ALT Alkaline Phosphatase Troponin I < 0.05 NT-Pro-B Natriuret Pep Total Protein Albumin TSH COVID-19 Source SARS-CoV-2 (PCR)
[2020-09-19] MEDS: Enoxaparin 40 MG/0.4 ML SYR SC (09:33)
[2020-09-19] MEDS: Multivitamin TAB 1 TAB PO (09:33)
[2020-09-19] MEDS: Potassium Chloride 20 MEQ TABCR 40 MEQ PO (09:57)
--- NOTE | 2020-09-19 13:54 | INITIAL_ITS ---
- If Service Date Differs Date of service: 09/19/20 Time of Service: 13:54 Care Management Initial Assess REASON FOR HOSPITALIZATION:: PSVT (paryoxysmal supraventricular tachycardia) PAST MEDICAL HISTORY/PAST SURGICAL HISTORY:: Medical History (Updated 09/18/20 @ 23:28 by Charly Garnica). Fibrocystic breast disease (FCBD). Seasonal allergies. Surgical History (Updated 09/18/20 @ 23:28 by Charly Garnica). Status post right breast lumpectomy PREVIOUS FUNCTIONAL STATUS/SOCIAL/FAMILY SUPPORTS:: Jesika lives in a single family home in [place], [place] She has 5 children and her youngest son Neftali lives with her. Two of her children live out of state and the other 2 are in [place]. Jesika describes her family as close and supportive. Jesika continues to work at [employer]. 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 CURRENT FUNCTIONAL STATUS:: Jesika was sitting up in a chair when CM met with her. 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 Children learn about plants and animals as well as self- reliance and independence. She stated that there is virtually no bullying or discord and that all subjects taught in a traditional setting are covered. Jesika also talked a bit about her current health issue and expressed the desire to be discharged as soon as she can. ADVANCE DIRECTIVES:: None on file but Jesika informed CM that she does have ADs and that her son Neftali is HCA. Has patient been provided with info about the portal/API?: Yes Did the patient sign up for the portal?: No CODE STATUS:: Full Code INSURANCE COVERAGE / FINANCIAL ISSUES:: Medicare. AARP CURRENT HOME/COMMUNITY SERVICES/EQUIPMENT:: none PRIMARY CARE PHYSICIAN:: Tamela Foreman POTENTIAL DISCHARGE NEEDS:: Follow up with PCP and discharge plan of care PATIENT/FAMILY EDUCATION NEEDS:: Review of discharge instructions, medications, follow up plan, Ask Me Three TRANSPORTATION:: via private vehicle with family PLAN:: Jesika will be discharged home with no new services, She will follow up with her PCP and discharge plan of care and transport with family. Cm will continue to support patient and assess for discharge concerns.
[2020-09-19] MEDS: Metoprolol 25 MG TAB 37.5 MG PO (18:06)
[2020-09-19] MEDS: Normal Saline Flush 10 ML SYR IVP (18:08)
[2020-09-19] MEDS: LORazepam 0.5 MG TAB PO (21:21)
--- NOTE | 2020-09-19 21:30 | RT.EKG_ITS ---
APPROVED REPORT Exam: Resting ECG Reason for Exam: new First degree AVB Patient Location: I HR:65 bpm ECG Measurements Heart Rate 65 AXIS CA 215 P -15 QRSd 82 QRS -32 QT 408 T 0 QTc 425 Conclusion Sinus rhythm with atrial premature beats ed CA interval...CA >212, V-rate 50- 90 Poor R wave progression, cannot exclude old anterior infarct..
[2020-09-20] VITALS (34 sets, daily range): BP systolic 104–163; BP diastolic 55–127; PULSE 54–109; RESP 12–24; TEMP 36–36.6; O2SAT 94–99
[2020-09-20] MEDS: Metoprolol 25 MG TAB 37.5 MG PO ×3 (01:04→11:44)
[2020-09-20 07:14] LABS: Anion Gap 4.1 mmol/L (3-11); BUN 20 mg/dL (7-18); CO2 29.9 mmol/L (21.0-32.0); CREATININE 1.1 mg/dL (0.55-1.02); Calcium 10.3 mg/dL (8.5-10.1); Chloride 106 mmol/L (98-107); Estimated GFR 48.16 (mL/min/1.73m2); Glucose 94 mg/dL (74-106); Magnesium 2.1 mg/dL (1.8-2.4); Potassium 4.4 mmol/L (3.5-5.1); Sodium 140 mmol/L (136-145)
--- NOTE | 2020-09-20 08:26 | W.PM.PROGNOT ---
Subjective Subjective Interval history since last seen: No SVT/bursts of ST. BPs ok. plan for discharge. Objective Last Vital Signs Temp 36 C L 09/20/20 00:00 Pulse 54 L 09/20/20 02:01 Resp 18 09/20/20 03:20 BP 104/55 L 09/20/20 02:01 Pulse Ox 97 09/20/20 03:20 Laboratory Results - last 24 hr 09/20/20 06:15 Sodium 140 Potassium 4.4 D Chloride 106 Carbon Dioxide 29.9 Anion Gap 4.1 BUN 20 H Creatinine 1.1 H Estimated GFR/1.73 m2 48.16 Glucose 94 Calcium 10.3 H Magnesium 2.1
[2020-09-20] MEDS: Enoxaparin 40 MG/0.4 ML SYR SC (09:05)
[2020-09-20] MEDS: Multivitamin TAB 1 TAB PO (09:05)
--- NOTE | 2020-09-20 11:30 | W.PM.DS.N ---
Date of service: 09/20/20 Time of Service: 11:46 DS: Diagnosis Discharge Diagnosis (1) PSVT (paroxysmal supraventricular tachycardia): Status: Acute (2) Thoracic ascending aortic aneurysm: Status: Acute (3) Panic attack: Status: Resolved (4) Hypertension: Status: Chronic (5) Breast mass, right: Status: Acute (6) Fibrocystic breast disease (FCBD): Status: Chronic (7) Anxiety disorder: Status: Chronic (8) COVID-19 ruled out by laboratory testing: Status: Ruled-out Discharge Plan Disposition Patient Disposition: HOME Condition: Good Discharge Details Reason For Visit: PSVT Admit Date/Time: 09/18/20 20:28 Admit Provider: Charly Garnica Attending Provider: Charly Garnica Primary Care Provider: Tamela Foreman Hospital Course Hospital Course: Ms Pham is a 75 year old female with PMHx of long-standing symptoms of anxiety and what she describes as panic attacks as well as fibrocystic breast disease s/p R breast lumpectomy in the past, who was admitted to [facility] hospitalist service on 09/18/20 with paroxysmal SVT, having presented with dizziness and otherwise feeling like she is having a panic attack. Her workup here revealed paroxysmal SVT. PE was ruled out with a negative CTA of the chest. ACS was ruled out. TSH was normal. Echo revealed EF of 60-65%, no wall motion abnormalities, normal size of the atria, RVSP of 15.3 mmHg. The patient was initiated on oral metoprolol which was titrated up until both BP and HR were controlled, and episodes of SVT stopped. The patient does seem quite anxious and should have this addressed with outpatient psychotherapy, about which she is instructed to talk to her PCP. She is getting discharged home today with a 30 day cardiac event recorder. She should follow up with cardiology. It is worth noting that the patient's CTA also noted a R breast spiculated mass. Because the patient has a h/o fibrocystic breast, an outpatient breast ultrasound is being ordered on discharged. Depending on those results, PCP may choose to refer the patient to general surgery. Finally, the patient also had evidence of ascending thoracic aorta aneurysm without dissection on CTA. The patient's BP control should be top priority and cardiology follow up is indicated for a possible TORI. Care for patient as well as completion of her discharge summary took 60 minutes on the day of discharge. Home Meds and New Rx's Prescriptions: New metoprolol tartrate 25 mg Tablet 37.5 mg PO Q6H Qty: 3 RF: 0 metoprolol succinate [Toprol XL] 100 mg tablet extended release 24 hr 150 mg PO DAILY Qty: 46 RF: 0 Continued fexofenadine 180 mg Tablet 180 mg PO DAILY RF: 0 Multi Vitamin 9 mg iron/15 mL Liquid PO RF: 0 Discharge Instructions Instructions: Metoprolol (By mouth), Supraventricular Tachycardia (DC), Thoracic Aortic Aneurysm (DC), Low-Sodium Diet (DC), Anxiety (DC) Additional Instructions: Take 1.5 tabs of lopressor (metoprolol tartrate) today at 1800 and tonight at midnight. Starting tomorrow morning, take Toprol XL 150 mg PO daily. Wear your cardiac event recorder as prescribed. Follow up with your PCP and with cardiology. Follow up with your PCP in regards to psychotherapy. Follow up for your breast ultrasound - you will be contacted for scheduling. Return to the hospital with any fever, bleeding, chest pain, shortness of breath. Referrals: Lizzie Montes MD [ [facility] STAFF PHYSICIAN] - 10/25/20 1:20 pm Tamela Foreman [Primary Care Provider] - 09/27/20 8:15 am Activity:: Activity as Tolerated Equipment/Supplies:: cardiac event recorder Diet:: Low Sodium Discharge Orders Discharge Orders: Discharge Order (Routine); Ordered 09/20/20 Ordered By: Connie Sepulveda Other Ambulatory Orders: Cardiac Event Recorder (Routine) Timeframe: 1 Day Facility: [facility] - Location: Respiratory Therapy Ordered By: Connie Sepulveda breast RT limited (Routine) Timeframe: 2 Weeks Facility: [facility] - Location: DIAGNOSTIC IMAGING Ordered By: Connie Sepulveda DS: Summary Time Spent with Patient providing and/or coordinating discharge services: Greater than 30 minutes Status at Discharge Functional status at discharge: independent ambulation Overall status at discharge: patient is back to baseline Mental Status: mental status grossly normal Speech and Movement: speech and movement normal Mood: congruent mood Affect: normal affect Exam Narrative Exam Narrative: General: Pleasant anxious elderly female, A&ox3, sitting comfortably in a chair HEENT: EOMI, MMM Heart: RRR, no m/r/g Lungs: CTAB Abdomen: soft, nontender, nondistended Extremities: no edema BLE's Psych Mental Status: mental status grossly normal Speech and Movement: speech and movement normal Mood: congruent mood Affect: normal affect DS: Data Vitals/I&O Vitals and I&O: Vital Signs Temperature 36.6 C 09/20/20 08:00 Temperature Source Temporal Artery Scan 09/20/20 08:00 Pulse 71 09/20/20 08:00 Pulse Rhythm Regular 09/20/20 08:00 Pulse 83 09/20/20 08:01 Respiratory Rate 22 09/20/20 08:01 Respiratory Effort Non-Labored 09/20/20 08:00 Respiratory Depth Normal 09/20/20 08:00 Respiratory Pattern Normal 09/20/20 08:00 Blood Pressure 143/87 H 09/20/20 08:00 Blood Pressure Mean 101 09/20/20 08:00 Blood Pressure Position Supine 09/19/20 02:32 Pulse Oximetry 96 09/20/20 08:01 Oxygen Delivery Method Room Air 09/20/20 08:00 Oxygen Flow Rate 0 09/20/20 08:00 Pain Level 0 09/20/20 08:00 Intake & Output 09/19/20 09/19/20 09/20/20 11:59 23:59 11:59 Intake Total 720 / 1460 740 / 1460 520 / 520 Output Total 675 / 1750 1075 / 1750 650 / 650 Balance 45 / -290 -335 / -290 -130 / -130 Weight 79.01 kg Intake: Oral 720 / 1460 740 / 1460 520 / 520 Output: Urine 675 / 1750 1075 / 1750 650 / 650 Other: Urine Color Straw Yellow Yellow Urine Appearance Clear Clear Clear Urine Odor Foul None Normal Comment Patient up ab frida to the commode Stool Size Moderate Stool Characteristics Soft Brown Voiding Methods Bedside Commode Bedside Commode Bedside Commode Data Completed and Pending Completed studies during hospitalization [Text1]: CTA chest: 1. No evidence of acute pulmonary emboli. No evidence of pulmonary infarction.Mild increased markings in the right lung base posterior basal segment right lower lobe. No pleural effusions. No pneumothorax. 2. There is a solid spiculated mass in the right breast measuring approximately 2.7 x 1.5 centimeter, suspicious for malignancy. Recommend mammogram and breast ultrasound. 3. Ascending thoracic aorta aneurysm which exhibits diameter 4.6 cm. No dissection. 4. Small pericardial effusion. 5. Liver and right renal cysts as described above. TTE: Mild concentric left ventricular hypertrophy. Estimated ejection fraction is 60 to 65%. There are no segmental wall motion abnormalities Normal right ventricular size and systolic function Both atria are normal in size [place] mildly sclerotic aortic valve with trace regurgitation. No aortic stenosis Mitral annular calcification. Trace mitral regurgitation Normal tricuspid valve with trace regurgitation Normal pulmonic valve, trace pulmonic regurgitation Dilated ascending aorta measuring 4.76 cm Labs on day of discharge: Labs from last 24 hours 09/20/20 06:15 Sodium 140 Potassium 4.4 D Chloride 106 Carbon Dioxide 29.9 Anion Gap 4.1 BUN 20 H Creatinine 1.1 H Estimated GFR/1.73 m2 48.16 Glucose 94 Calcium 10.3 H Magnesium 2.1 PFSH Medical History Fibrocystic breast disease (FCBD) Seasonal allergies Surgical History Status post right breast lumpectomy Social History Smoking/Tobacco Use Status: Never Smoking risk assessment performed?: Yes Alcohol Intake: never Drug use: Never Substance use type: does not use Household members: children Number of Children: 5 number of grandchildren: 7 Education Level: college 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
--- NOTE | 2020-09-20 15:56 | PDOC.CMDIS ---
- If Service Date Differs Date of service: 09/20/20 Time of Service: 16:04 LACE Index Scoring Tool - Questions: Length of Stay (in days): 2 Acuity (Admit via E.D.?): Yes Comorbidities: Any Tumor E.D. Visits: 1 - Answers: Total Score: 8 Risk of Readmission: Low Risk Care Management Discharge Reason for Hospitalization: PSVT (paryoxysmal supraventricular tachycardia) Discharge Plan: Jesika will be discharged home with no new services, She will follow up with her PCP and discharge plan of care and transport with family. Patient/Family Education Needs: Review of discharge instructions, medications, follow up plan, Ask Me Three
== END 2020-09-20 13:20 | disposition home or self-care (01) | DRG 310 ==
LOC: ER 22:46 → ICU 22:50
PROVIDERS: Internal Medicine; Nurse Practitioner Acute Care; Admitting Provider Internal Medicine; Emergency Provider Student in an Organized Health Care Education/Training Program; PCP Nurse Practitioner Family; Visit Provider Internal Medicine
DX: I47.1 Supraventricular tachycardia (principal); I71.2 Thoracic aortic aneurysm, without rupture; I10 Essential (primary) hypertension; Z20.822 Contact with and (suspected) exposure to COVID-19; F41.0 Panic disorder [episodic paroxysmal anxiety]; N63.10 Unspecified lump in the right breast, unspecified quadrant
CPT/HCPCS: 36415; 71275; 80048; 80053; 87635; 93005; 93270; 93306; 99222; 99285; J1650; 83735; 83880; 84132; 84443; 84484; 85025; 85379; 93010; 99232; 99239; 99284; J3490

== ENCOUNTER → 2020-09-19 07:37 | Outpatient (BNVA) | payer MEDICARE, SELFPAY ==
--- NOTE | 2020-10-21 08:46 | W.CARDEVENT ---
Date of service: 10/21/20 Time of Service: 08:46 Cardiac Event Recorder Referring Provider:: Jeyson Indications:: Calliy Cardiac Event Note: This is a 30-day event recorder order for indication of supraventricular tachycardia. The patient was in normal sinus rhythm with occasional first-degree heart block with an average heart rate of 95 bpm. There were two automatically detected events. These consisted of one episode of supraventricular tachycardia lasting 13 beats and one episode of ventricular tachycardia lasting five beats. There were no episodes of atrial fibrillation, no pauses greater than 3 seconds and no evidence of high degree heart block. There was one patient triggered event associated with sinus rhythm.
== END ==
PROVIDERS: PCP Nurse Practitioner Family; Referring Provider Nurse Practitioner Family; Visit Provider Internal Medicine Cardiovascular Disease
DX: R69 Illness, unspecified (principal)

== ENCOUNTER 2020-09-27 23:23 | Emergency (ER) | payer MEDICARE, SELFPAY ==
--- NOTE | 2020-09-27 00:30 | DI.CT_ITS ---
Exam(s) CT THORAX CTA EXAM: CT THORAX CTA CLINICAL HISTORY: HTN, dizzy, hx anyurism. TECHNIQUE: Imaging Protocol: Axial CT angiography was performed with multi-slice acquisition and mu lti-planar and/or 3D reconstructions. CONTRAST MATERIAL: Intravenous: Omnipaque 350 Contrast volume:structured data in ml COMPARISON: CT CT CHEST PE CTA from 09/18/[address] CHEST PE CTA from 09/18/[address] BRAIN NECK CTA from 09/28/2020 FINDINGS: Pulmonary Arteries: No evidence of filling defect to suggest pulmonary emboli. Tracheobronchial tree: Patent where visualized. Mediastinum and Sujey: No dominant adenopathy or fluid collection. Pulmonary parenchyma: No consolidation or dominant measurable mass. No architectural distortion. Pleura: No effusion or pneumothorax. Heart: The heart is mildly dilated. Mild coronary artery calcifications are seen. Trace pericardial effusion. Aorta: Ascending aorta 4.7 cm. No evidence of dissection. Upper abdomen: Small hiatal hernia. Liver cysts. No definite suspicious masses. Bones: Degenerative changes mid thoracic spine. No definite suspicious metastatic lesions. Soft tissues: No change suspicious solid mass right breast, 2.5 cm. Additional posterior left breast mass, 13 millimeters diameter. No axillary adenopathy visible. IMPRESSION: No evidence of pulmonary embolism. 4.7 cm ascending aortic aneurysm without evidence of dissection. Clear lungs. Bilateral breast masses, right greater than left. RADIATION DOSE DELIVERED: 459.83mGy.cm Total DLP DATA REPOSITORY: All CT scans at this facility are submitted to the National Radiology Data Registry (NRDR) Dose Index Registry (DIR) with the [employer] ([employer]). RADIATION OPTIMIZATION: All CT scans at this facility use at least one of these dose optimization te chniques: automated exposure control; mA and/or kV adjustment per patient size (includes targeted exa ms where dose is matched to clinical indication); or iterative reconstruction.
--- NOTE | 2020-09-27 00:30 | DI.CT_ITS ---
Exam(s) CT BRAIN NECK CTA EXAM: CT BRAIN NECK CTA CLINICAL HISTORY: dizzy, lightheaded, BP 223/110, hx aortic anyurism. TECHNIQUE: Imaging Protocol: Axial CT angiography was performed with multi-slice acquisition and mu lti-planar and/or 3D reconstructions. CONTRAST MATERIAL: Intravenous: Omnipaque 350 Contrast volume:45 ml COMPARISON: CT CT CHEST PE CTA from 09/18/2020 FINDINGS: CT Head W/O and W contrast: Ventricles and Extra axial spaces: Normal in size and morphology for the patient's age. Mild atroph y. Hemorrhage: None. Cerebral parenchyma: Normal. Midline shift: None. Brainstem/Cerebellum: Normal. Calvarium: Normal. Visualized Paranasal sinuses/Mastoids: Clear. Soft Tissues: Unremarkable. Enhancement: Normal. No enhancing masses. CTA Brain W: Internal Carotid Arteries: Petrous: Normal. Cavernous: Normal. Cerebral: Normal. Middle Cerebral Arteries: Right: No aneurysm, occlusion or significant stenosis. Left: No aneurysm, occlusion or significant stenosis. Anterior Cerebral Arteries: Right: No aneurysm, occlusion or significant stenosis. Left: No aneurysm, occlusion or significant stenosis. Posterior cerebral Arteries: Right: No aneurysm, occlusion or significant stenosis. Left: No aneurysm, occlusion or significant stenosis. Vertebral Arteries: Right: No aneurysm, occlusion or significant stenosis. Left: No aneurysm, occlusion or significant stenosis. Basilar Artery: No aneurysm, occlusion or significant stenosis. CTA Neck W: Common Carotid: Right: No aneurysm, occlusion or significant stenosis. Left: No aneurysm, occlusion or significant stenosis. External Carotid: Right: No aneurysm, occlusion or significant stenosis. Left: No aneurysm, occlusion or significant stenosis. Internal Carotid: Right: No aneurysm, occlusion or significant stenosis. Left: No aneurysm, occlusion or significant stenosis. Vertebral Artery: Right: No aneurysm, occlusion or significant stenosis. Left: No aneurysm, occlusion or significant stenosis. Lung Apices: Normal. Bones: Normal. Soft Tissues: Normal. IMPRESSION: 1. Normal CTA examination of the [place]. 2. Unremarkable CT Head. 3. Normal CTA examination of the neck. RADIATION DOSE DELIVERED: 1,973.85mGy.cm Total DLP 1,973.85mGy.cm Total DLP DATA REPOSITORY: All CT scans at this facility are submitted to the National Radiology Data Registry (NRDR) Dose Index Registry (DIR) with the [employer] (ACR). RADIATION OPTIMIZATION: All CT scans at this facility use at least one of these dose optimization te chniques: automated exposure control; mA and/or kV adjustment per patient size (includes targeted exa ms where dose is matched to clinical indication); or iterative reconstruction.
--- NOTE | 2020-09-27 23:15 | RT.EKG_ITS ---
APPROVED REPORT Exam: Resting ECG Reason for Exam: CHEST PAIN Patient Location: E HR:82 bpm ECG Measurements Heart Rate 82 AXIS KS 244 P 34 QRSd 85 QRS -33 QT 372 T 55 QTc 436 Conclusion Sinus rhythm...normal P axis, V-rate 60- 99 Atrial premature complex...SV complex w/ short R-R interval Prolonged KS interval...KS >220, V-rate 50- 90 Left ventricular hypertrophy...multiple voltage criteria Physician: unchanged Anterior infarct, old...Q >40mS, abnormal ST-T, V2-V5
[2020-09-27 23:30] VITALS: BP 228/130; PULSE 85; RESP 16; TEMP 36.5; O2SAT 96
[2020-09-27 23:40] VITALS: RESP 16
[2020-09-27 23:49] VITALS: BP 222/127; PULSE 84; PULSE 88; RESP 20
--- NOTE | 2020-09-27 23:49 | ED.GENADUL_ITS ---
Discharge Plan Disposition Patient Disposition: HOME Condition: Good Discharge Details Clinical Impression: Episodic lightheadedness, Hypertension Primary Care Provider: Tamela Foreman ED Provider: Errol Medrano Home Meds and New Rx's Prescriptions: Continued fexofenadine 180 mg Tablet 180 mg PO DAILY RF: 0 Multi Vitamin 9 mg iron/15 mL Liquid 15 ml PO DAILY RF: 0 metoprolol succinate [Toprol XL] 100 mg tablet extended release 24 hr 150 mg PO DAILY Qty: 46 RF: 0 Discharge Instructions Instructions: Hypertension (ED) Additional Instructions: At this time your work-up is returned very reassuring. There is no signs of heart attack, worsening of your thoracic aneurysm, or new aneurysm or abnormality in your head. Please continue to take your home medications as directed. If you notice that your blood pressure is notably elevated in the it would be reasonable to take one of your 50 mg tablet of metoprolol at night. However if you have any other symptoms associated with this elevated blood pressure please contact us or return immediately for reassessment. Ideally it is best for you to formulate a plan with your primary care provider for the management of your blood pressure. Please follow-up closely with them on Wednesday for reassessment and potential changes for your blood pressure medications. Please drink plenty of fluids and stay well-hydrated as some of the contrast that was used in your studies today may irritate the kidneys if you do not stay well-hydrated. If you notice any worsening of your symptoms, or any new symptoms such as vomiting, diarrhea, fever, chills, shortness of breath, chest pain, numbness, weakness, or fainting , please return immediately to the emergency department for reevaluation. Please follow up with your primary care provider as soon as possible for reassessment and reevaluation. As always, it was a pleasure participating in your medical care today. Referrals: Tamela Foreman [Primary Care Provider] - Medical Decision Making This is a pleasant 75-year-old female with a past medical history of panic attacks, recent SVT, fibrocystic breast disease, and an incidental finding of an ascending thoracic aortic aneurysm on her last visit, as well as notable h ypertension currently being managed by metoprolol. She presents today for evaluation of transient dizziness and subsequent hypertension. Patient states that while she was at home this evening getting ready for bed she felt lightheaded like she wanted to pass out but did not pass out. She laid down and felt it actually made her symptoms slightly worse. She had no associated chest pain, vision changes, headache, chest tightness, tearing or ripping sensation or other complaints. She did not actually pass out. She does have chronic tinnitus but this is unchanged. She went and checked her blood pressure and noted it to be greater than 200 for systolic greater than 100 for diastolic. She contacted her primary care provider who recommended that she take her nighttime metoprolol plus an extra 50 mg and so she states that she took 150 mg this evening total. Since then the symptoms have notably improved but she came to the ER for further assessment out of appropriate concern. Currently she states she feels well, and continues to deny any other symptoms. No other complaints at this time. She does have a cardiac sonographer in place that was given at time of discharge. Physical exam is notably unremarkable, no neurologic deficits, ataxia, asymmetric pulses, or asymmetric vascular exam components. Patient looks well. Patient's blood pressure is notably elevated at 228/130, this was checked twice on both arms using different cuffs and manual blood pressure. In spite of this high blood pressure she remains relatively asymptomatic however with the level of blood pressure in addition to the episode of near syncope I do feel that further evaluation is indicated. We will get a CT scan/CT of the brain, evaluate for abnormal cardiac markers or electrolyte abnormalities, monitor closely and reassess. We will see if we can interrogate her cardiac sonographer to see if there is a cardiac dysrhythmia when this episode occurred. 2:[address] scans of the chest head neck/CTA have returned negative for any worsening aneurysm, new aneurysms, bleed or other abnormalities acutely. Patient remained stable and has had no repeat episodes of dizziness or lightheadedness. Laboratory work-up stable. EKG and troponin normal. Renal function near baseline. Liver function unremarkable. Patient feels well and would like to go home. We did contact respiratory therapy, and the cardiac event monitor was evaluated and per the event monitoring [employer] there are no acute changes or abnormalities or events noted in the event monitor at this time. On reassessment the patient's blood pressure has notably improved on its own. Systolic is now in the 160s, diastolic at 100. No indication for emergent IV therapy for the patient's blood pressure at this time. Although patient still clearly struggles with hypertension her numbers have certainly seem to improve back to their normal baseline. Recommend continuation of home metoprolol, but also recommend potential intermittent dosing at night and 50 mg if needed. We did recommend with the patient that she follow-up closely with her primary care provider to formulate an ongoing treatment plan for her hypertension. Discussed red flags which to return. I have extensively reviewed the treatment plan and discharge instructions with the patient and their family. I have addressed all patient concerns at this time. The patient and family was made aware of what symptoms to monitor for that would warrant a return to the emergency department. Discussed the plan with the patient and family, they demonstrate verbal understanding and agreement with our assessment and plan at this time. The documentation in this chart was dictated using [employer] dictation software. Please excuse any dictation errors. FINDINGS: ANTERIOR CIRCULATION: Right internal carotid artery: Unremarkable. Intracranial segment is patent with no significant stenosis. No aneurysm. Right middle cerebral artery: Unremarkable. No occlusion or significant stenosis. No aneurysm. Right anterior cerebral artery: Unremarkable. No occlusion or significant stenosis. No aneurysm. Left internal carotid artery: Unremarkable. Intracranial segment is patent with no significant stenosis. No aneurysm. Left middle cerebral artery: Unremarkable. No occlusion or significant stenosis. No aneurysm. Left anterior cerebral artery: Unremarkable. No occlusion or significant stenosis. No aneurysm. POSTERIOR CIRCULATION: Right vertebral artery: Unremarkable. No occlusion or significant stenosis. No aneurysm. Left vertebral artery: Unremarkable. No occlusion or significant stenosis. No an eurysm. Basilar artery: Unremarkable. No occlusion or significant stenosis. No aneurysm. Right posterior cerebral artery: Unremarkable. No occlusion or significant stenosis. No aneurysm. Left posterior cerebral artery: Unremarkable. No occlusion or significant stenosis. No aneurysm. Brain: No acute intracranial hemorrhage. Carrillo/white matter differentiation is unremarkable. Cisterns are unremarkable. Brainstem is unremarkable. No suprasellar mass. Cerebral ventricles: No ventriculomegaly. Bones/joints: Unremarkable. No acute fracture. Soft tissues: No mass lesion. No mass effect. Thalamus and hypothalamus are unremarkable. Cerebellum is unremarkable. No areas of abnormal enhancement after contrast administration. IMPRESSION: No evidence of large vessel occlusion or significant stenosis. Left common carotid artery: No stenosis. No dissection or occlusion. Left internal carotid artery: No stenosis of the extracranial segment. No dissection or occlusion. Left external carotid artery: No occlusion or stenosis of the origin. Right vertebral artery: No stenosis. No dissection or occlusion. Left vertebral artery: No stenosis. No dissection or occlusion. Soft tissues: Normal. No significant soft tissue swelling. Bones/joints: Facet arthropathy at multiple levels. IMPRESSION: No evidence of vascular stenosis by NASCET criteria. REFERENCES: NASCET CRITERIA. The degree of internal carotid artery stenosis is based on NASCET criteria. Normal is no stenosis. Mild is less than 50% stenosis. Moderate is 50-69% stenosis. Severe is 70% to 99% stenosis. Total occlusion is no detectable patent lumen. Thank you for allowing us to participate in the care of your patient. Dictated and Authenticated by: Muna De Luna MD 09/28/2020 1:25 AM Eastern Time ([place] & [place]) FINDINGS: Right common carotid artery: No stenosis. No dissection or occlusion. Right internal carotid artery: No stenosis of the extracranial segment. No dissection or occlusion. Right external carotid artery: No occlusion or stenosis of the origin. FINDINGS: Pulmonary arteries: Normal. No pulmonary emboli. Aorta: There is redemonstration of aneurysmal dilatation of the ascending aorta measuring approximately 4.7 cm. Lungs: No consolidation. No masses. Pleural spaces: No pneumothorax. No pleural effusion. Heart: No cardiomegaly. No pericardial effusion. Mediastinal space: There is a small hiatal hernia. Lymph nodes: No enlarged lymph nodes. Liver: Simple appearing cysts are noted in the partially visualized liver measuring up to 4.2 cm. Bones/joints: No acute fracture. Soft tissues: There is a 2.5 cm mass again noted in the right breast (image 20, series 4), unchanged since the prior examination. IMPRESSION: 1. Stable appearance of 4.7 cm ascending aortic aneurysm. 2. No evidence of dissection. 3. No acute pulmonary parenchymal disease. 4. Stable 2.5 cm solid mass in the right breast. Correlate with mammography findings. Thank you for allowing us to participate in the care of your patient. Dictated and Authenticated by: Ning Clayton MD 09/28/2020 1:54 AM Eastern Time ([place] & [place]) HPI General Date/Time Provider Initiated Documentation: 09/27/20 23:24 . HPI Narrative: This is a pleasant 75-year-old female with a past medical history of panic attacks, recent SVT, fibrocystic breast disease, and an incidental finding of an ascending thoracic aortic aneurysm on her last visit, as well as notable hypertension currently being managed by metoprolol. She presents today for evaluation of transient dizziness and subsequent hypertension. Patient states that while she was at home this evening getting ready for bed she felt lightheaded like she wanted to pass out but did not pass out. She laid down and felt it actually made her symptoms slightly worse. She had no associated chest pain, vision changes, headache, chest tightness, tearing or ripping sensation or other complaints. She did not actually pass out. She does have chronic tinnitus but this is unchanged. She went and checked her blood pressure and noted it to be greater than 200 for systolic greater than 100 for diastolic. She contacted her primary care provider who recommended that she take her nighttime metoprolol plus an extra 50 mg and so she states that she took 150 mg this evening total. Since then the symptoms have notably improved but she came to the ER for further assessment out of appropriate concern. Currently she states she feels well, and continues to deny any other symptoms. No other complaints at this time. She does have a cardiac sonographer in place that was given at time of discharge. Related Data Home Medications Medication Instructions Recorded Confirmed Multi Vitamin 15 ml PO DAILY 09/18/20 09/27/20 fexofenadine 180 mg PO DAILY 09/18/20 09/27/20 metoprolol succinate [Toprol XL] 150 mg PO DAILY #46 tab 09/20/20 09/27/20 Previous Rx's Medication Instructions Recorded metoprolol succinate [Toprol XL] 150 mg PO DAILY #46 tab 09/20/20 Allergies Allergy/AdvReac Type Severity Reaction Status Date / Time No Known Allergies Allergy Unverified 09/18/20 16:14 General Stated Complaint: Dizzy/Sync RICHI: 3 Review of Systems All systems reviewed & are unremarkable except as noted in HPI and below PFSH Medical History Fibrocystic breast disease (FCBD) Seasonal allergies Surgical History Status post right breast lumpectomy Social History Smoking/Tobacco Use Status: Never Smoking risk assessment performed?: Yes Alcohol Intake: never Drug use: Never Substance use type: does not use Household members: children Number of Children: 5 number of grandchildren: 7 Education Level: college 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 3.ENT: Atraumatic external nose and ears. Moist MM. Neck: Symmetric, trachea midline, No thyromegaly. 4.CVS: +S1/S2, No murmurs or gallops. Peripheral pulses 2+ and equal in all extremities. Brisk capillary refill in all extremities. Radial pulses +2 bilaterally. 5.RESP: Unlabored respiratory effort. Clear to auscultation bilaterally. No wheezes rales or rhonchi 6.GI: Soft, Nontender/Nondistended, No hepatosplenomegaly. No guarding or rebound. 7.MSK: Normocephalic/Atraumatic, Extremities w/o deformity or ttp No cyanosis or clubbing, Normal movement of all extremities 8.Skin: Warm, Dry. No rashes or lesions. 9.Neuro: steward/stewardess tourist class II-XII grossly intact. Sensation grossly intact, no focal neurologic deficits. All 6 cardinal planes of vision are fully intact. No evidence of rotatory or vertical nystagmus. The patient demonstrated a normal [id number], good dexterity. There was no evidence of dysdiadochokinesia. Patient was able to ambulate without difficulty. There was no wide-based gait. Romberg testing was normal. Tidg-cj-[id number] testing was normal. Sensation was intact bilaterally as well as muscle strength bilaterally for all extremities. Patient was able to verbalize butter cup with no slurring, or miss pronunciation. Cerebellar function testing is normal. The patient demonstrates a normal hints exam with no findings concerning for a central event. No vertical nystagmus. The head impulse test is negative for any significant central abnormality. Normal test of skew. No suggestion of a central cerebellar event. 10.Psych: (AAO) x3. Appropriate mood and affect Course Vital Signs Vital signs: Vital Signs Temperature 36.5 C 09/27/20 23:30 Pulse 85 09/27/20 23:30 Respiratory Rate 16 09/27/20 23:30 Blood Pressure 228/130 H 09/27/20 23:30 Pulse Oximetry 96 09/27/20 23:30 Temperature 36.5 C 09/27/20 23:30 Pulse 85 09/27/20 23:30 Respiratory Rate 16 09/27/20 23:40 Respiratory Effort 09/27/20 23:40 Respiratory Pattern Normal 09/27/20 23:40 Blood Pressure 228/130 H 09/27/20 23:30 Blood Pressure Position Sitting 09/27/20 23:30 Pulse Oximetry 96 09/27/20 23:30 Pain Level 0 09/27/20 23:30
[2020-09-27 23:50] VITALS: PULSE 84; RESP 27; O2SAT 97
[2020-09-27 23:55] LABS: Abs Immature Grans 0.03 10^3/uL (0.0-0.06); Absolute Basophil Count 0.04 10^3/uL (0.0-0.2); Absolute Lymphocyte Count 2.48 10^3/uL (1.2-3.4); Absolute Monocyte Count 0.81 10^3/uL (0.1-0.8); Absolute Neutrophil Count 4.93 10^3/uL (1.2-6.7); Basophils % 0.5; Eosinophils % 1.2; HCT 44.7 % (36.0-46.0); HGB 14.6 g/dL (11.2-15.7); Immature Grans % 0.4; Lymphocytes % 29.6; MCH 27.6 pg (27.0-33.0); MCHC 32.7 % (32.0-36.0); MCV 84.5 fL (80-95); MPV 9.3 fL (8.0-11.0); Monocytes % 9.7; Neutrophils % 58.6; Nucleated RBC 0 %; Platelet Count 242 10^3/uL (130-400); RBC 5.29 10^6/uL (3.93-5.22); RDW 14.3 % (11.7-14.6); WBC 8.39 10^3/uL (4.4-10.8)
[2020-09-28] VITALS (15 sets, daily range): BP systolic 162–204; BP diastolic 100–109; PULSE 72–81; RESP 14–45; O2SAT 93–98
[2020-09-28 00:16] LABS: Bilirubin Negative (Negative); Blood Small (Negative); Clarity Sl Cloudy (Clear); Glucose Negative (Negative); Ketones Negative (Negative); Leukocyte Esterase Trace (Negative); Nitrite Negative (Negative); Urobilinogen 0.2 EU/dL (Up TO 0.2)
[2020-09-28 00:17] LABS: ALT 20 U/L (14-59); AST 10 U/L (15-37); Albumin 3.6 g/dL (3.4-5.0); Alkaline Phosphatase 78 U/L (46-116); Anion Gap 8.2 mmol/L (3-11); BUN 19 mg/dL (7-18); Bilirubin, Total 0.3 mg/dL (0.2-1.0); CO2 28.8 mmol/L (21.0-32.0); CREATININE 1.2 mg/dL (0.55-1.02); Calcium 10.5 mg/dL (8.5-10.1); Chloride 105 mmol/L (98-107); Estimated GFR 43.56 (mL/min/1.73m2); Glucose 108 mg/dL (74-106); Potassium 3.7 mmol/L (3.5-5.1); Sodium 142 mmol/L (136-145); Total Protein 7.2 g/dL (6.4-8.2)
[2020-09-28 00:18] LABS: Troponin I < 0.05 ng/mL (<0.06)
[2020-09-28 00:21] LABS: Bacteria Many HPF (Negative); C & S Indicated? Yes; Casts Negative LPF (Negative); Crystals Negative HPF (Negative); Epithelial Cells Few HPF (Negative); Mucus Negative (Negative)
[2020-09-28] MEDS: Omnipaque 350 MG/ML 100 ML BTL IJ (01:08)
[2020-09-28] MEDS: Normal Saline Flush 10 ML SYR IVP (01:09)
[2020-09-28] MEDS: Normal Saline - Diluent 50 ML VIAL IV (01:09)
[2020-09-28] MEDS: Normal Saline 500 ML IV (01:11)
--- NOTE | 2020-09-28 01:25 | DI.VRAD_ITS ---
PROCEDURE INFORMATION: Exam: CT Angiography Head With Contrast, Arteriography Exam date and time: 09/27/2020 11:46 PM Age: 75 years old Clinical indication: Other: Dizzy, lightheaded BP 223/110, HX aortic anyurism; Additional info: Reduced contrast dose due to renal function per Dr. Medrano TECHNIQUE: Imaging protocol: Computed tomography angiography of the head with contrast. Exam focused on the arteries. 3D rendering (Not supervised by radiologist): MIP and/or 3D reconstructed images were created by the technologist. Radiation optimization: All CT scans at this facility use at least one of these dose optimization techniques: automated exposure control; mA and/or kV adjustment per patient size (includes targeted exams where dose is matched to clinical indication); or iterative reconstruction. Contrast material: OMNIPAQUE 350; Contrast volume: 45 ml; Contrast route: INTRAVENOUS (IV); COMPARISON: No relevant prior studies available. FINDINGS: ANTERIOR CIRCULATION: Right internal carotid artery: Unremarkable. Intracranial segment is patent with no significant stenosis. No aneurysm. Right middle cerebral artery: Unremarkable. No occlusion or significant stenosis. No aneurysm. Right anterior cerebral artery: Unremarkable. No occlusion or significant stenosis. No aneurysm. Left internal carotid artery: Unremarkable. Intracranial segment is patent with no significant stenosis. No aneurysm. Left middle cerebral artery: Unremarkable. No occlusion or significant stenosis. No aneurysm. Left anterior cerebral artery: Unremarkable. No occlusion or significant stenosis. No aneurysm. POSTERIOR CIRCULATION: Right vertebral artery: Unremarkable. No occlusion or significant stenosis. No aneurysm. Left vertebral artery: Unremarkable. No occlusion or significant stenosis. No aneurysm. Basilar artery: Unremarkable. No occlusion or significant stenosis. No aneurysm. Right posterior cerebral artery: Unremarkable. No occlusion or significant stenosis. No aneurysm. Left posterior cerebral artery: Unremarkable. No occlusion or significant stenosis. No aneurysm. Brain: No acute intracranial hemorrhage. Carrillo/white matter differentiation is unremarkable. Cisterns are unremarkable. Brainstem is unremarkable. No suprasellar mass. Cerebral ventricles: No ventriculomegaly. Bones/joints: Unremarkable. No acute fracture. Soft tissues: No mass lesion. No mass effect. Thalamus and hypothalamus are unremarkable. Cerebellum is unremarkable. No areas of abnormal enhancement after contrast administration. IMPRESSION: No evidence of large vessel occlusion or significant stenosis. PROCEDURE INFORMATION: Exam: CT Angiography Neck With Contrast Exam date and time: 09/27/2020 11:46 PM Age: 75 years old Clinical indication: Other: Dizzy, lightheaded BP 223/110, HX aortic anyurism; Additional info: Reduced contrast dose due to renal function per Dr. Medrano TECHNIQUE: Imaging protocol: Computed tomography angiography of the neck with contrast. 3D rendering (Not supervised by radiologist): MIP and/or 3D reconstructed images were created by the technologist. Radiation optimization: All CT scans at this facility use at least one of these dose optimization techniques: automated exposure control; mA and/or kV adjustment per patient size (includes targeted exams where dose is matched to clinical indication); or iterative reconstruction. Contrast material: OMNIPAQUE 350; Contrast volume: 45 ml; Contrast route: INTRAVENOUS (IV); COMPARISON: No relevant prior studies available. FINDINGS: Right common carotid artery: No stenosis. No dissection or occlusion. Right internal carotid artery: No stenosis of the extracranial segment. No dissection or occlusion. Right external carotid artery: No occlusion or stenosis of the origin. Left common carotid artery: No stenosis. No dissection or occlusion. Left internal carotid artery: No stenosis of the extracranial segment. No dissection or occlusion. Left external carotid artery: No occlusion or stenosis of the origin. Right vertebral artery: No stenosis. No dissection or occlusion. Left vertebral artery: No stenosis. No dissection or occlusion. Soft tissues: Normal. No significant soft tissue swelling. Bones/joints: Facet arthropathy at multiple levels. IMPRESSION: No evidence of vascular stenosis by NASCET criteria. REFERENCES: NASCET CRITERIA. The degree of internal carotid artery stenosis is based on NASCET criteria. Normal is no stenosis. Mild is less than 50% stenosis. Moderate is 50-69% stenosis. Severe is 70% to 99% stenosis. Total occlusion is no detectable patent lumen. Dictated and Authenticated by: Muna De Luna MD. Ordering:LYNNE Norton MD
--- NOTE | 2020-09-28 01:55 | DI.VRAD_ITS ---
Addendum created by Ning Macias MD on 09/28/2020 1:55:22 AM EDT: Of noted this scan is not tailored to evaluate the pulmonary arteries. No large embolus is seen. Initial report created on 09/28/2020 1:54:39 AM EDT: PROCEDURE INFORMATION: Exam: CTA Chest With Contrast Exam date and time: 09/27/2020 12:49 AM Age: 75 years old Clinical indication: HTN, dizzy, HX aneurysm; Additional info: Reduced contrast dose due to renal function per Dr. Medrano TECHNIQUE: Imaging protocol: Computed tomographic angiography of the chest with contrast. 3D rendering (Not supervised by radiologist): MIP and/or 3D reconstructed images were created by the technologist. Radiation optimization: All CT scans at this facility use at least one of these dose optimization techniques: automated exposure control; mA and/or kV adjustment per patient size (includes targeted exams where dose is matched to clinical indication); or iterative reconstruction. Contrast material: OMNIPAQUE 350; Contrast volume: 50 ml; Contrast route: INTRAVENOUS (IV); COMPARISON: CT CHEST PE CTA 09/18/2020 7:05 PM FINDINGS: Pulmonary arteries: Normal. No pulmonary emboli. Aorta: There is redemonstration of aneurysmal dilatation of the ascending aorta measuring approximately 4.7 cm. Lungs: No consolidation. No masses. Pleural spaces: No pneumothorax. No pleural effusion. Heart: No cardiomegaly. No pericardial effusion. Mediastinal space: There is a small hiatal hernia. Lymph nodes: No enlarged lymph nodes. Liver: Simple appearing cysts are noted in the partially visualized liver measuring up to 4.2 cm. Bones/joints: No acute fracture. Soft tissues: There is a 2.5 cm mass again noted in the right breast (image 20, series 4), unchanged since the prior examination. IMPRESSION: 1. Stable appearance of 4.7 cm ascending aortic aneurysm. 2. No evidence of dissection. 3. No acute pulmonary parenchymal disease. 4. Stable 2.5 cm solid mass in the right breast. Correlate with mammography findings. Dictated and Authenticated by: Ning Macias MD. Ordering:LYNNE Norton MD
== END 2020-09-28 02:20 | disposition home or self-care (01) ==
PROVIDERS: Emergency Provider Student in an Organized Health Care Education/Training Program; PCP Nurse Practitioner Family
DX: R42 Dizziness and giddiness (principal); I10 Essential (primary) hypertension
CPT/HCPCS: 70496; 70498; 71275; 80053; 87077; 93005; 96360; 99285; 81003; 81015; 83735; 84443; 84484; 85025; 87086; 87186; 93010; 99283; J3490

== ENCOUNTER 2020-09-29 21:50 | Emergency (ER) | payer MEDICARE, SELFPAY ==
[2020-09-29 22:02] VITALS: BP 148/98; PULSE 111; RESP 18; TEMP 36.5; O2SAT 97
[2020-09-29] MEDS: Meclizine 25 MG TAB PO (22:06)
--- NOTE | 2020-09-29 22:13 | ED.GENADUL_ITS ---
Discharge Plan Disposition Patient Disposition: HOME Condition: Good Discharge Details Clinical Impression: Peripheral positional vertigo Primary Care Provider: Tamela Foreman ED Provider: Errol Medrano Home Meds and New Rx's Prescriptions: New meclizine 25 mg tablet 25 mg PO TID Qty: 20 RF: 0 Continued fexofenadine 180 mg Tablet 180 mg PO DAILY RF: 0 Multi Vitamin 9 mg iron/15 mL Liquid 15 ml PO DAILY RF: 0 metoprolol succinate [Toprol XL] 100 mg tablet extended release 24 hr 150 mg PO DAILY Qty: 46 RF: 0 Discharge Instructions Instructions: Benign Paroxysmal Positional Vertigo (ED) Additional Instructions: At this time you have symptoms that are consistent with peripheral vertigo. Please take the meclizine as directed. Stay well-hydrated, drinking plenty fluids throughout the day. Avoid highly caffeinated or highly salty products. If you do not notice any improvement of your symptoms over the next few days you may require repeat imaging. If you notice any worsening of your symptoms, or any new symptoms such as vo miting, diarrhea, fever, chills, shortness of breath, chest pain, numbness, weakness, or fainting , please return immediately to the emergency department for reevaluation. Please follow up with your primary care provider as soon as possible for reassessment and reevaluation. As always, it was a pleasure participating in your medical care today. Referrals: Tamela Foreman [Primary Care Provider] - Discharge Data Discharge Date/Time-TO BE ENTERED AT DEPARTURE: 09/29/20 22:30 Medical Decision Making This is a pleasant 75-year-old female with a past medical history of panic attacks, recent SVT, fibrocystic breast disease, and an incidental finding of an ascending thoracic aortic aneurysm, and hypertension, she is recently just seen 2 days ago where she had a notable work-up of CTA of the head neck and chest, here in the emergency department. All of which was unchanged, stable with no acute process. Shortly thereafter that visit the next morning when she got up out of bed she turned her head suddenly to the left and had notable room spinning sensation. Since then she has noticed continued room spinning sensation whenever she turns her head to the left. She states that her symptoms are stabilized if she does not turn her head and only looks forward. She denies any tinnitus, headache, or vision changes. She did contact her PCP yesterday, and was prescribed meclizine unfortunately all of the pharmacies are closed secondary to the September holiday. Patient denies any other complaints at this time. No other modifying factors. Physical exam demonstrates 1-2 beat left-sided horizontal nystagmus. Head impulse test is notably positive to the left. [place]-Hallpike was performed which notably altered the patient symptoms, subsequent Quintin maneuver was performed which led to complete resolution of the patient's symptoms. Dizziness resolved. Symptoms are clinically consistent with peripheral vertigo, managed with the Quintin maneuver. They are clinically inconsistent with a cerebellar event at this time. Especially with the recent negative CTA of the head neck less than 48 hours ago, no indication for repeat imaging at this time as her symptoms are peripheral in nature. Will give prescription for meclizine. Discussed red flags for which to return. I have extensively reviewed the treatment plan and discharge instructions with the patient. I have addressed all patient concerns at this time. The patient was made aware of what symptoms to monitor for that w ould warrant a return to the emergency department. Discussed the plan with the patient, they demonstrate verbal understanding and agreement with our assessment and plan at this time. The documentation in this chart was dictated using [email or web address] dictation software. Please excuse any dictation errors. HPI General Date/Time Provider Initiated Documentation: 09/29/20 22:02 . HPI Narrative: This is a pleasant 75-year-old female with a past medical history of panic attacks, recent SVT, fibrocystic breast disease, and an incidental finding of an ascending thoracic aortic aneurysm, and hypertension, she is recently just seen 2 days ago where she had a notable work-up of CTA of the head neck and chest, here in the emergency department. All of which was unchanged, stable with no acute process. Shortly thereafter that visit the next morning when she got up out of bed she turned her head suddenly to the left and had notable room spinning sensation. Since then she has noticed continued room spinning sensation whenever she turns her head to the left. She states that her symptoms are stabilized if she does not turn her head and only looks forward. She denies any tinnitus, headache, or vision changes. She did contact her PCP yesterday, and was prescribed meclizine unfortunately all of the pharmacies are closed secondary to the September holiday. Patient denies any other complaints at this time. No other modifying factors. Related Data Home Medications Medication Instructions Recorded Confirmed Multi Vitamin 15 ml PO DAILY 09/18/20 09/29/20 fexofenadine 180 mg PO DAILY 09/18/20 09/29/20 metoprolol succinate [Toprol XL] 150 mg PO DAILY #46 tab 09/20/20 09/29/20 meclizine 25 mg PO TID #20 tab 09/29/20 Previous Rx's Medication Instructions Recorded metoprolol succinate [Toprol XL] 150 mg PO DAILY #46 tab 09/20/20 meclizine 25 mg PO TID #20 tab 09/29/20 Allergies Allergy/AdvReac Type Severity Reaction Status Date / Time No Known Allergies Allergy Unverified 09/29/20 22:04 General Stated Complaint: Dizzy/Sync RICHI: 3 Review of Systems All systems reviewed & are unremarkable except as noted in HPI and below PFSH Medical History Fibrocystic breast disease (FCBD) Seasonal allergies Surgical History Status post right breast lumpectomy Social History Smoking/Tobacco Use Status: Never Smoking risk assessment performed?: Yes Alcohol Intake: never Drug use: Never Substance use type: does not use Household members: children Number of Children: 5 number of grandchildren: 7 Education Level: college 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 3.ENT: Atraumatic external nose and ears. Moist MM. Neck: Symmetric, trachea midline, No thyromegaly. 4.CVS: +S1/S2, No murmurs or gallops. Peripheral pulses 2+ and equal in all extremities. Brisk capillary refill in all extremities. 5.RESP: Unlabored respiratory effort. Clear to auscultation bilaterally. No wheezes rales or rhonchi 6.GI: Soft, Nontender/Nondistended, No hepatosplenomegaly. No guarding or rebound. 7.MSK: Normocephalic/Atraumatic, Extremities w/o deformity or ttp No cyanosis or clubbing, Normal movement of all extremities 8.Skin: Warm, Dry. No rashes or lesions. 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 Sensation grossly intact, no focal neurologic deficits. All 6 cardinal planes of vision are fully intact. The patient demonstrated a normal [id number]-[id number], good dexterity. There was no evidence of dysdiadochokinesia. Patient was able to ambulate without difficulty if she is looking straight ahead. There was no wide-based gait. Romberg testing was normal. Gnye-id-ujva testing was normal. Sensation was intact bilaterally as well as muscle strength bilaterally for all extremities. Patient was able to verbalize butter cup with no slurring, or miss pronunciation. Cerebellar function testing is normal. The patient demonstrates a normal hints exam with no findings concerning for a central event. No vertical nystagmus. She has mild 1-2 beat left-sided unidirectional horizontal nystagmus. No rotatory nystagmus. The head impulse test notably positive with movement to the left, but unremarkable with movement to the right. Normal test of skew with no vertical or horizontal correction. No suggestion of a central cerebellar event. 10.Psych: (AAO) x3. Appropriate mood and affect Course Vital Signs Vital signs: Vital Signs Temperature 36.5 C 09/29/20 22:02 Pulse 111 H 09/29/20 22:02 Respiratory Rate 18 09/29/20 22:02 Blood Pressure 148/98 H 09/29/20 22:02 Pulse Oximetry 97 09/29/20 22:02 Temperature 36.5 C 09/29/20 22:02 Pulse 111 H 09/29/20 22:02 Respiratory Rate 18 09/29/20 22:02 Respiratory Effort Non-Labored 09/29/20 22:06 Respiratory Depth Normal 09/29/20 22:06 Respiratory Pattern Normal 09/29/20 22:06 Blood Pressure 148/98 H 09/29/20 22:02 Pulse Oximetry 97 09/29/20 22:02 Pain Level 0 09/29/20 22:02
[2020-09-29] MEDS: Meclizine 25 MG TAB 100 MG PO (22:26)
== END 2020-09-29 22:30 | disposition home or self-care (01) ==
PROVIDERS: Emergency Provider Student in an Organized Health Care Education/Training Program; PCP Nurse Practitioner Family
DX: H81.392 Other peripheral vertigo, left ear (principal)
CPT/HCPCS: 99283

== ENCOUNTER 2020-10-10 11:06 | Emergency (ER) | payer MEDICARE, SELFPAY ==
[2020-10-10] VITALS (23 sets, daily range): BP systolic 139–180; BP diastolic 82–101; PULSE 67–106; RESP 9–24; TEMP 36.5; O2SAT 93–98
--- NOTE | 2020-10-10 11:00 | RT.EKG_ITS ---
APPROVED REPORT Exam: Resting ECG Reason for Exam: hypertension, dizzy Patient Location: E HR:81 bpm ECG Measurements Heart Rate 81 AXIS MN 190 P 12 QRSd 80 QRS -36 QT 366 T 18 QTc 427 Conclusion Sinus rhythm...normal P axis, V-rate 60- 99 Left ventricular hypertrophy...multiple voltage criteria Anterior infarct, old...Q >40mS, abnormal ST-T, V2-V5. No STEMI. I have reviewed and interpreted ECG and agree with software generated interpretation.
[2020-10-10 12:08] LABS: Bilirubin Negative (Negative); Blood Trace-intact (Negative); Clarity Clear (Clear); Glucose Negative (Negative); Ketones Negative (Negative); Leukocyte Esterase Negative (Negative); Nitrite Negative (Negative); Urobilinogen 0.2 EU/dL (Up TO 0.2); pH 6.5 (5-8)
[2020-10-10 12:15] LABS: Abs Immature Grans 0.03 10^3/uL (0.0-0.06); Absolute Basophil Count 0.03 10^3/uL (0.0-0.2); Absolute Eosinophil Count 0.04 10^3/uL (0.0-0.7); Absolute Lymphocyte Count 1.54 10^3/uL (1.2-3.4); Absolute Monocyte Count 0.64 10^3/uL (0.1-0.8); Absolute Neutrophil Count 4.81 10^3/uL (1.2-6.7); Basophils % 0.4; Eosinophils % 0.6; HCT 40.8 % (36.0-46.0); HGB 13.5 g/dL (11.2-15.7); Immature Grans % 0.4; Lymphocytes % 21.7; MCHC 33.1 % (32.0-36.0); MCV 84.6 fL (80-95); MPV 9.2 fL (8.0-11.0); Neutrophils % 67.9; Nucleated RBC 0 %; Platelet Count 254 10^3/uL (130-400); RBC 4.82 10^6/uL (3.93-5.22); RDW 14.5 % (11.7-14.6); RDW-SD 44.6 fL; WBC 7.09 10^3/uL (4.4-10.8)
[2020-10-10 12:16] LABS: Bacteria Negative HPF (Negative); C & S Indicated? No; Casts Negative LPF (Negative); Crystals Negative HPF (Negative); Epithelial Cells Negative HPF (Negative); Mucus Negative (Negative); RBC 0-2 HPF (0-2); WBC Negative HPF (0-5)
[2020-10-10 12:32] LABS: ALT 19 U/L (14-59); AST 9 U/L (15-37); Albumin 3.5 g/dL (3.4-5.0); Alkaline Phosphatase 72 U/L (46-116); Anion Gap 6.5 mmol/L (3-11); BUN 18 mg/dL (7-18); Bilirubin, Total 0.4 mg/dL (0.2-1.0); CO2 29.5 mmol/L (21.0-32.0); CREATININE 1.1 mg/dL (0.55-1.02); Calcium 10.7 mg/dL (8.5-10.1); Chloride 106 mmol/L (98-107); Estimated GFR 48.16 (mL/min/1.73m2); Glucose 105 mg/dL (74-106); Sodium 142 mmol/L (136-145); Total Protein 7.1 g/dL (6.4-8.2)
[2020-10-10 12:34] LABS: Troponin I < 0.05 ng/mL (<0.06)
--- NOTE | 2020-10-10 12:35 | W.ED.GENAD ---
Discharge Plan Disposition Patient Disposition: HOME Condition: Good Discharge Details Clinical Impression: Episodic lightheadedness Primary Care Provider: Tamela Foreman ED Provider: Teresa Simms Home Meds and New Rx's Prescriptions: Continued Multi Vitamin 9 mg iron/15 mL Liquid 15 ml PO DAILY RF: 0 metoprolol succinate [Toprol XL] 100 mg tablet extended release 24 hr 150 mg PO DAILY Qty: 46 RF: 0 meclizine 25 mg tablet 25 mg PO TID Qty: 20 RF: 0 amlodipine 5 mg tablet 5 mg PO DAILY RF: 0 Discharge Instructions Additional Instructions: Continue on your prescribed medications and follow-up with your doctor next week Return with new or worsening symptoms including chest pain, shortness of breath, dizziness, weakness, worsening palpitations Discharge Data Discharge Date/Time-TO BE ENTERED AT DEPARTURE: 10/10/20 13:48 Medical Decision Making Patient blood pressure is improved, she is alert and oriented, her electrolytes are within normal limits She is ambulatory with steady gait, she is not orthostatic, she denies any chest pain or shortness of breath She was more concerned about her blood pressure as it was elevated at home. She has not been on her blood pressure meds for an extended period of time and I have instructed her that she will likely need more time for her blood pressure medication to become effective She will need to see her primary care physician in 2 to 3 days for reevaluation, she does not currently have a headache She does state that she had palpitations which she thinks awoke her from sleep in the morning and this concerned her She states he has numerous times in the past although she has a monitor currently and does not feel that there was an abnormality I have actually reviewed her rhythm and there is no documented abnormality in her chart She is ambulatory steady gait, blood pressure improved Encouraged to continue her medications and return immediately should she have new or worsening complaints She adamantly denies any dizziness Low suspicion for TIA or CVA PA, completely normal normal neurological evaluation CBC without abnormality calcium 10.7, this is consistent with patient's prior Negative orthostatics Medical Records Medical records reviewed: Yes I reviewed the patient's medical records. Lab Data Lab results reviewed: Yes I reviewed the patient's lab results. HPI General Mode of arrival: ambulatory. Date/Time Provider Initiated Documentation: 10/10/20 11:26. Limitations to Documentation: no limitations. Information obtained by: patient. HPI Narrative: This 75-year-old female presents with history of SVT, hypertension, thoracic ascending aortic aneurysm presents with reports of intermittent lightheadedness and palpitations. She states that she had 2 episodes, one in the middle the night and one this morning. She states this is similar to what she is experienced in the in the past. Denies any chest pain or shortness of breath. Denies dizziness or weakness. Otherwise states she is feeling well. Patient states her symptoms have resolved. She does state her blood pressures have been slightly elevated at home despite not taking few medications. She started the metoprolol approximately 15 days ago and started amlodipine 3 days ago. She denies any episodes of low blood pressure. She denies any dizziness or headache. She states she is actually feeling significantly improvement the Quintin maneuver was performed on . Related Data Home Medications Medication Instructions Recorded Confirmed Multi Vitamin 15 ml PO DAILY 09/18/20 10/10/20 metoprolol succinate [Toprol XL] 150 mg PO DAILY #46 tab 09/20/20 10/10/20 meclizine 25 mg PO TID #20 tab 09/29/20 10/10/20 amlodipine 5 mg PO DAILY 10/10/20 10/10/20 Previous Rx's Medication Instructions Recorded metoprolol succinate [Toprol XL] 150 mg PO DAILY #46 tab 09/20/20 meclizine 25 mg PO TID #20 tab 09/29/20 Allergies Allergy/AdvReac Type Severity Reaction Status Date / Time No Known Allergies Allergy Unverified 10/10/20 11:18 General Stated Complaint: GenMedical RICHI: 3 Review of Systems All systems reviewed & are unremarkable except as noted in HPI and below PFSH Medical History Fibrocystic breast disease (FCBD) Seasonal allergies Surgical History Status post right breast lumpectomy Social History Smoking/Tobacco Use Status: Never Smoking risk assessment performed?: Yes Alcohol Intake: never Drug use: Never Substance use type: does not use Household members: children Number of Children: 5 number of grandchildren: 7 Education Level: college 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 Do you feel safe at home: Yes Do you feel safe in your relationship?: Yes Exam Const General: no acute distress HENMT Head: normal to inspection Eyes General: appearance normal, both eyes and all related structures Pupils: PERRL EOM: EOM intact bilaterally Neck Other: No carotid bruit or pulsatile mass Resp Effort & Inspection: normal respiratory effort Auscultation: clear to auscultation bilaterally Cardio Rate: regular rate and not bradycardic Rhythm: regular rhythm Heart Sounds: no murmurs GI Other: No abdominal bruit or pulsatile mass Skin General skin exam: no rashes or lesions noted Lesions: no lesions Neuro General: patient alert and patient oriented x3 Cranial Nerves: CN's II-XI intact bilaterally and tongue midline Motor: strength 5/5 throughout Sensory Exam: no sensory deficits noted Extrem Other: Neurovascularly intact Course Vital Signs Vital signs: Vital Signs Temperature 36.5 C 10/10/20 11:13 Pulse 101 H 10/10/20 11:13 Respiratory Rate 16 10/10/20 11:13 Blood Pressure 169/101 H 10/10/20 11:13 Pulse Oximetry 97 10/10/20 11:13 Temperature 36.5 C 10/10/20 11:13 Temperature Source Skin 10/10/20 11:13 Pulse 74 10/10/20 12:07 Pulse 73 10/10/20 12:10 Respiratory Rate 15 10/10/20 12:10 Respiratory Effort Non-Labored 10/10/20 12:10 Respiratory Depth Normal 10/10/20 12:10 Respiratory Pattern Normal 10/10/20 12:10 Blood Pressure 155/82 H 10/10/20 12:07 Blood Pressure Mean 96 10/10/20 12:07 Blood Pressure Position Supine 10/10/20 11:13 Pulse Oximetry 97 10/10/20 12:10 Oxygen Delivery Method Room Air 10/10/20 11:13 Oxygen Flow Rate 0 10/10/20 11:13 Pain Level 0 10/10/20 11:13 Lab/Test Results Lab/Test Results: Laboratory Tests Range/Units 10/10/20 10/10/20 10/10/20 11:58 12:07 12:07 WBC (4.4-10.8) 10^3/uL 7.09 RBC (3.93-5.22) 10^6/uL 4.82 Hgb (11.2-15.7) g/dL 13.5 Hct (36.0-46.0) % 40.8 MCV (80-95) fL 84.6 MCH (27.0-33.0) pg 28.0 MCHC (32.0-36.0) % 33.1 RDW (11.7-14.6) % 14.5 Plt Count (130-400) 10^3/uL 254 MPV (8.0-11.0) fL 9.2 Immature Gran % 0.4 Neutrophils % 67.9 Lymphocytes % 21.7 Monocytes % 9.0 Eosinophils % 0.6 Basophils % 0.4 Nucleated RBC % % 0 Absolute Neutrophils (1.2-6.7) 10^3/uL 4.81 Absolute Lymphocytes (1.2-3.4) 10^3/uL 1.54 Absolute Monocytes (0.1-0.8) 10^3/uL 0.64 Absolute Eosinophils (0.0-0.7) 10^3/uL 0.04 Absolute Basophils (0.0-0.2) 10^3/uL 0.03 Sodium (136-145) mmol/L 142 Potassium (3.5-5.1) mmol/L 4.0 Chloride (98-107) mmol/L 106 Carbon Dioxide (21.0-32.0) mmol/L 29.5 Anion Gap (3-11) mmol/L 6.5 BUN (7-18) mg/dL 18 Creatinine (0.55-1.02) mg/dL 1.1 H Estimated GFR/1.73 m2 (mL/min/1.73m2) 48.16 Glucose (74-106) mg/dL 105 Calcium (8.5-10.1) mg/dL 10.7 H Magnesium (1.8-2.4) mg/dL 2.0 Total Bilirubin (0.2-1.0) mg/dL 0.4 AST (15-37) U/L 9 L ALT (14-59) U/L 19 Alkaline Phosphatase (46-116) U/L 72 Troponin I (<0.06) ng/mL < 0.05 Total Protein (6.4-8.2) g/dL 7.1 Albumin (3.4-5.0) g/dL 3.5 Urine Color (Yellow) Straw Urine Clarity (Clear) Clear Urine pH (5-8) 6.5 Ur Specific [place] (1.005-1.025) 1.010 Urine Protein (Negative) mg/dL Negative Urine Ketones (Negative) mg/dL Negative Urine Blood (Negative) Trace-intact H Urine Nitrite (Negative) Negative Urine Bilirubin (Negative) Negative Urine Urobilinogen (Up TO 0.2) EU/dL 0.2 Ur Leukocyte Esterase (Negative) Negative Urine RBC (0-2) HPF 0-2 Urine WBC (0-5) HPF Negative Ur Epithelial Cells (Negative) HPF Negative Urine Crystals (Negative) HPF Negative Urine Bacteria (Negative) HPF Negative Urine Casts (Negative) LPF Negative Urine Mucus (Negative) Negative Ur Culture Indicated? No Urine Glucose (Negative) mg/dL Negative
== END 2020-10-10 13:48 | disposition home or self-care (01) ==
PROVIDERS: Emergency Provider Physician Assistant; PCP Nurse Practitioner Family
DX: R42 Dizziness and giddiness (principal); R00.2 Palpitations
CPT/HCPCS: 36415; 80053; 93005; 99283; 81003; 81015; 83735; 84484; 85025; 93010

== ENCOUNTER 2020-10-21 08:46 | Outpatient (CLI) | payer MEDICARE, SELFPAY | END 2020-10-21 08:47 | LOC: CARDO 10-22 09:30 | PROVIDERS: PCP Nurse Practitioner Family; Referring Provider Internal Medicine; Visit Provider Internal Medicine Cardiovascular Disease | DX: I47.1 Supraventricular tachycardia (principal); I44.0 Atrioventricular block, first degree; I47.2 Ventricular tachycardia | CPT/HCPCS: 93272 ==

== ENCOUNTER → 2020-10-25 13:25 | Outpatient (BNVA) | payer MEDICARE, SELFPAY | PROVIDERS: PCP Nurse Practitioner Family; Referring Provider Nurse Practitioner Family; Visit Provider Internal Medicine Cardiovascular Disease | DX: I71.2 Thoracic aortic aneurysm, without rupture (principal); I47.1 Supraventricular tachycardia; I10 Essential (primary) hypertension | CPT/HCPCS: 99214; 99213 ==

== ENCOUNTER 2020-11-15 03:40 | Outpatient (CLI) | payer MEDICARE, SELFPAY ==
--- NOTE | 2020-11-15 | DI.MAMMO_ITS ---
Exam(s) US BREAST LT COMPLETE US BREAST RT COMPLETE MG MAMMO DIAGNOSTIC BI EXAM: MG MAMMO DIAGNOSTIC BI and ultrasound breast bilateral complete CLINICAL HISTORY: DIAGNOSTIC, STABLE RT BREAST MASS, NEW LT BREAST MASS ON CT. TECHNIQUE: Craniocaudal and mediolateral oblique Full Field Digital Mammography views with Computer Aided Diagnosis followed by Tomosynthesis and bilateral breast ultrasound. COMPARISON: CT CT THORAX CTA from 09/28/2020 FINDINGS: Mammography/Tomosynthesis: Masses/Architectural Distortion: There is a 2.7 cm spiculated lesion in the upper inner quadrant of t he right breast with associated skin retraction. There is also a 2.6 cm spiculated mass in the upper -outer quadrant of the left breast. These correspond to the finding seen on the CT scan of the chest from 09/28/2020. Microcalcifictions: No suspicious pleomorphic-type are seen. Skin Thickening/Nipple Retraction: None. Bilateral breast US: All 4 quadrants of both breast were evaluated sonographically. In addition, the retroareolar region in the axilla were also evaluated. Echotexture: Normal appearance of the glandular tissue. Shadowing: No suspicious foci. Cyst: None. Solid lesions: There is a 2 x 1.6 x 1.6 cm hypoechoic spiculated vascular mass at the 3 o'clock posit ion of the left breast 8 cm from the nipple. This corresponds to the mammographic abnormality. Ther e is a 2.7 x 2.1 x 1.9 cm hypoechoic vascular solid mass at the 2 o'clock position of the right breas t 3 cm from the nipple. This corresponds to the mammographic abnormality. No significant axillary a denopathy is appreciated. No other masses are seen sonographically. Ductal dilation: None. IMPRESSION: 1. Findings highly suspicious for multifocal carcinoma. 2. Biopsy is recommended. Findings were discussed with the patient's PCP, Tamela Foreman, on the date of the examination. 3. The findings were discussed with the patient on the date of the examination. BI-RADS Category 5 - Highly Suggestive of Malignancy: Biopsy recommended Breast Density - Category B - Scattered areas of fibroglandular density Breast density Category C or D implies that the patient has dense breast tissue. Dense breast tissue can make it harder to find cancer on a mammogram. Dense breast tissue is also associated with an incr eased risk of breast cancer. This information about the result of the mammogram report was provided to the patient to raise their awareness. Use this report when you speak with the patient about their risks for breast cancer, which includes their family history. At that time, you may recommend additional screening tests (Ultrasoun d or MRI) as these tests may add significant information. A negative radiographic report should not delay biopsy if a dominant or clinically suspicious mass is present. Up to ten percent of cancers are not identified on mammography. A negative report may reinforce clinical impression. Adenosis and dense breasts may obscure an underlying neoplasm. False positive reports average 6 to 10%. Patient will receive a letter notifying them of these results.
== END 2020-11-15 04:00 ==
PROVIDERS: PCP Nurse Practitioner Family; Visit Provider Internal Medicine
DX: R92.8 Other abnormal and inconclusive findings on diagnostic imaging of breast (principal); N63.25 Unspecified lump in the left breast, overlapping quadrants; N63.12 Unspecified lump in the right breast, upper inner quadrant; N60.19 Diffuse cystic mastopathy of unspecified breast
CPT/HCPCS: 76642; 77062; 77066; G0279

== ENCOUNTER 2021-03-07 00:13 | Outpatient (CLI) | payer MEDICARE, SELFPAY ==
--- NOTE | 2021-03-07 15:30 | DI.DEXA_ITS ---
Exam(s) XR DEXA BONE DENSITY W/WO JUNG EXAM: XR DEXA BONE DENSITY W/WO JUNG CLINICAL HISTORY: POST MENOPAUSAL Z78.0, BREAST CANCER C50.919 OSTEOPOROSIS RISK FACTORS TECHNIQUE: COMPARISON: No exams were available for comparison FINDINGS: Lateral Spine Image: Unremarkable. No compression deformities identified. Left hip: Total T-Score: -1.6 Total Z-Score: 0.3 T- and Z-scores: Findings are consistent with osteopenia. Lumbar Spine: Total T-Score: -1.6 Total Z-Score: 1.0 T- and Z-scores: Findings are consistent with osteopenia. IMPRESSION: No evidence of osteoporosis. Osteopenia in the lumbar spine and left hip.
== END 2021-03-07 00:33 ==
PROVIDERS: PCP Internal Medicine; Visit Provider Family Medicine
DX: M85.88 Other specified disorders of bone density and structure, other site (principal); Z78.0 Asymptomatic menopausal state; Z85.3 Personal history of malignant neoplasm of breast
CPT/HCPCS: 77080

== ENCOUNTER → 2021-04-04 13:24 | Outpatient (BNVA) | payer MEDICARE, SELFPAY | PROVIDERS: PCP Internal Medicine; Referring Provider Nurse Practitioner Family; Visit Provider Internal Medicine Cardiovascular Disease | DX: I71.2 Thoracic aortic aneurysm, without rupture (principal); I47.1 Supraventricular tachycardia; I10 Essential (primary) hypertension; Z85.3 Personal history of malignant neoplasm of breast; Z79.899 Other long term (current) drug therapy | CPT/HCPCS: 99214 ==

== ENCOUNTER 2021-05-20 15:27 | Outpatient (CLI) | payer MEDICARE, SELFPAY ==
[2021-05-20 17:31] LABS: Abs Immature Grans 0.03 10^3/uL (0.0-0.06); Absolute Basophil Count 0.03 10^3/uL (0.0-0.2); Absolute Eosinophil Count 0.06 10^3/uL (0.0-0.7); Absolute Lymphocyte Count 1.45 10^3/uL (1.2-3.4); Absolute Monocyte Count 0.74 10^3/uL (0.1-0.8); Absolute Neutrophil Count 4.28 10^3/uL (1.2-6.7); Basophils % 0.5; Eosinophils % 0.9; HCT 39.4 % (36.0-46.0); Immature Grans % 0.5; MCH 28.4 pg (27.0-33.0); MCV 86.2 fL (80-95); MPV 9.1 fL (8.0-11.0); Monocytes % 11.2; Neutrophils % 64.9; Nucleated RBC 0 %; Platelet Count 287 10^3/uL (130-400); RBC 4.57 10^6/uL (3.93-5.22); RDW 13.8 % (11.7-14.6); RDW-SD 43.5 fL; WBC 6.59 10^3/uL (4.4-10.8)
[2021-05-20 17:44] LABS: ALT 18 U/L (14-59); AST 13 U/L (15-37); Albumin 3.4 g/dL (3.4-5.0); Alkaline Phosphatase 85 U/L (46-116); Anion Gap 9.4 mmol/L (3-11); BUN 17 mg/dL (7-18); Bilirubin, Total 0.2 mg/dL (0.2-1.0); CO2 27.6 mmol/L (21.0-32.0); CREATININE 1.1 mg/dL (0.55-1.02); Calcium 10.2 mg/dL (8.5-10.1); Chloride 105 mmol/L (98-107); Estimated GFR 48.04 (mL/min/1.73m2); Glucose 92 mg/dL (74-106); Potassium 4.2 mmol/L (3.5-5.1); Sodium 142 mmol/L (136-145); Total Protein 7.2 g/dL (6.4-8.2)
== END 2021-05-20 15:28 | disposition home or self-care (01) ==
LOC: LBO 15:47
PROVIDERS: PCP Internal Medicine; Visit Provider Internal Medicine
DX: C50.912 Malignant neoplasm of unspecified site of left female breast; C50.911 Malignant neoplasm of unspecified site of right female breast; Z17.0 Estrogen receptor positive status [ER+]
CPT/HCPCS: 36415; 80053; 85025

== ENCOUNTER → 2021-12-19 00:04 | Outpatient (CLI) | payer MEDICARE, SELFPAY ==
--- NOTE | 2021-12-19 10:45 | DI.MAMMO_ITS ---
Exam(s) MG MAMMO SCREENING 60 MIN DUR EXAM: MG MAMMO SCREENING 60 MIN DUR CLINICAL HISTORY: H/O BREAST CA, 1ST MAMMO POST YRIS TREATMENT, NEW SCAR TECHNIQUE: Mammograms were interpreted according to the usual protocol including computer analysis w [employer] CAD system, tomosynthesis and C-view imaging. COMPARISON: 2020 FINDINGS: The breasts are composed of scattered fibroglandular densities, Breast Density category B. Patient is status post bilateral lumpectomy and radiation for the masses seen on the prior exam. Jay gical clips and post biopsy scarring are noted in these areas. Scarring is greater on the right. No suspicious masses or suspicious microcalcifications are seen. No skin thickening or abnormal axillary lymph nodes are seen. . IMPRESSION: BI-RADS Cat 2 - Benign Findings Yearly screening mammography is recommended. Breast Density - Category B, scattered fibroglandular densities. A negative radiographic report should not delay biopsy if a dominant or clinically suspicious mass is present. Up to ten percent of cancers are not identified on mammography. A negative report may reinforce clinical impression. Adenosis and dense breasts may obscure an underlying neoplasm. False positive reports average 6 to 10%. Patient will receive a letter notifying them of these results.
== END ==
PROVIDERS: PCP Internal Medicine; Visit Provider Surgery
DX: Z12.31 Encounter for screening mammogram for malignant neoplasm of breast (principal); Z85.3 Personal history of malignant neoplasm of breast
CPT/HCPCS: 77063; 77067

== ENCOUNTER → 2022-04-28 09:04 | Outpatient (BNVA) | payer MEDICARE, SELFPAY | PROVIDERS: PCP Internal Medicine; Referring Provider Internal Medicine; Visit Provider Internal Medicine Cardiovascular Disease | DX: I47.1 Supraventricular tachycardia (principal); I10 Essential (primary) hypertension; I71.20 Thoracic aortic aneurysm, without rupture, unspecified | CPT/HCPCS: 99214 ==

== ENCOUNTER 2022-05-26 01:05 | Outpatient (CLI) | payer MEDICARE, SELFPAY ==
--- NOTE | 2022-05-26 08:00 | DI.CT_ITS ---
Exam(s) CT THORAX CTA EXAM: CT THORAX CTA CLINICAL HISTORY: Thoracic ASCENDING aneurysm,i71.2. TECHNIQUE: Imaging Protocol: CT angiography of the chest was performed using pulmonary embolus luz maria col. Multi planar reconstructions were performed. CONTRAST MATERIAL: Intravenous: Omnipaque 350 Contrast volume: 100 cc COMPARISON: CT CT THORAX CTA from 09/28/2020 FINDINGS: CHEST: THORACIC AORTA: The ascending thoracic aorta is again noted be enlarged. Diameter is 4.8 cm. With n o evidence of dissection. Diameter of the mid thoracic arch is 2.6 cm. Diameter of the proximal shirley cending thoracic aorta is 2.8 cm. Diameter of the mid descending thoracic aorta is 2.7 cm. Diameter of the lower thoracic descending aorta is 2.7 cm. PULMONARY ARTERIES: There are no intraluminal filling defects to suggest acute pulmonary emboli. LUNGS: There are no infiltrates nor evidence of pulmonary infarction.. No ominous pulmonary nodules. There are no pleural effusions. No pneumothorax. MEDIASTINUM: Moderate size retrocardiac hiatal hernia noted. This has increased in size from the pre vious study, presently measuring approximately 6 cm wide by 4.5 cm AP by 4 cm craniocaudal. No hilar nor mediastinal adenopathy. Visualized thyroid unremarkable. CARDIAC: Heart size is upper normal. There is no significant pericardial effusion.Caliber thoracic a wanda as above. No dissection. There is no significant shift of the interventricular septum. PARTIALLY VISUALIZED UPPERMOST ABDOMEN: No adrenal masses. Cysts are again noted in both hepatic lob es. Largest is in the right hepatic lobe and measures 5 cm. No splenomegaly. Benign cyst in the la teral cortex of the right kidney is noted measuring 3 x 3 cm. Entire kidneys not included in the fie ld of view. No hydronephrosis. Visualized pancreas appears unremarkable. OSSEOUS: No fractures. No significant osseous lesions identified.. IMPRESSION: 1. No evidence of acute pulmonary emboli. No evidence of pulmonary infarction.No pleural effusions. No ominous pulmonary nodules. 2. Dilated ascending thoracic aorta is again noted. Maximum measured diameter on the present study i s 4.8 cm which is similar to the previous 4.7 cm reading. There is no evidence of aortic dissection. There is no significant pericardial effusion. RADIATION DOSE DELIVERED: 495.88mGy.cm Total DLP DATA REPOSITORY: All CT scans at this facility are submitted to the National Radiology Data Registry (NRDR) Dose Index Registry (DIR) with the [employer] (ACR). RADIATION OPTIMIZATION: All CT scans at this facility use at least one of these dose optimization te chniques: automated exposure control; mA and/or kV adjustment per patient size (includes targeted exa ms where dose is matched to clinical indication); or iterative reconstruction.
[2022-05-26 11:36] LABS: Estimated GFR 57.31 (mL/min/1.73m2)
[2022-05-26] MEDS: Omnipaque 350 MG/ML 500 ML BTL-Imaging package IJ (12:30)
[2022-05-26] MEDS: Normal Saline - Diluent 50 ML VIAL IJ (12:31)
== END 2022-05-26 01:25 ==
PROVIDERS: PCP Internal Medicine; Visit Provider Internal Medicine Cardiovascular Disease
DX: I10 Essential (primary) hypertension (principal); I71.20 Thoracic aortic aneurysm, without rupture, unspecified
CPT/HCPCS: 71275; 82565

== ENCOUNTER → 2023-01-01 00:38 | Outpatient (CLI) | payer MEDICARE, SELFPAY ==
--- NOTE | 2023-01-01 | DI.MAMMO_ITS ---
Exam(s) MG MAMMO SCREENING 60 MIN DUR EXAM: MG MAMMO SCREENING 60 MIN DUR CLINICAL HISTORY: SCREENING MAMMO FOR BREAST CANCER PERS HX TECHNIQUE: Mammograms were interpreted according to the usual protocol including computer analysis w [facility] CAD system, tomosynthesis and C-view imaging. COMPARISON: MG MM DIGITAL SCR * BILATERAL W ASSOC CHG from 06/04/2008 MG MM DIGITAL DIAG LT UNILAT from 06/12/2008 MG MG MAMMO DIAGNOSTIC BI from 11/15/2020 MG MG MAMMO SCREENING 60 MIN DUR from 12/19/2021 FINDINGS: The breasts are composed of scattered fibroglandular densities, Breast Density category B. No suspicious masses or suspicious microcalcifications are seen. Bilateral areas post lumpectomy sca rring and surgical clips are again noted. No skin thickening or abnormal axillary lymph nodes are seen. There has been no significant change from the postoperative exams. IMPRESSION: BI-RADS Cat 2 - Benign Findings Yearly screening mammography is recommended. Breast Density - Category B, scattered fibroglandular densities. A negative radiographic report should not delay biopsy if a dominant or clinically suspicious mass is present. Up to ten percent of cancers are not identified on mammography. A negative report may reinforce clinical impression. Adenosis and dense breasts may obscure an underlying neoplasm. False positive reports average 6 to 10%. Patient will receive a letter notifying them of these results.
== END ==
PROVIDERS: PCP Internal Medicine; Visit Provider Physician Assistant
DX: Z12.31 Encounter for screening mammogram for malignant neoplasm of breast (principal); Z85.3 Personal history of malignant neoplasm of breast
CPT/HCPCS: 77063; 77067

== ENCOUNTER 2023-04-27 08:09 | Outpatient (CLI) | payer MEDICARE, SELFPAY | END 2023-04-27 08:10 | disposition home or self-care (01) | LOC: DI.CARD 08:10 | PROVIDERS: PCP Internal Medicine; Visit Provider Internal Medicine Interventional Cardiology | CPT/HCPCS: 93010 ==

== ENCOUNTER → 2023-12-21 10:28 | Outpatient (BNVA) | payer MEDICARE, SELFPAY | PROVIDERS: PCP Internal Medicine; Referring Provider Internal Medicine; Visit Provider Internal Medicine Cardiovascular Disease | DX: I71.21 Aneurysm of the ascending aorta, without rupture (principal); I47.10 Supraventricular tachycardia, unspecified; I10 Essential (primary) hypertension | CPT/HCPCS: 99213 ==

== ENCOUNTER 2024-01-03 00:59 | Outpatient (CLI) | payer MEDICARE, SELFPAY ==
--- NOTE | 2024-01-03 | DI.MAMMO_ITS ---
Exam(s) MG MAMMO SCREENING 60 MIN DUR EXAM: MG MAMMO SCREENING 60 MIN DUR CLINICAL HISTORY: SCREENING MAMMO,personal h/o breast ca. TECHNIQUE: Bilateral full field digital CC and MLO mammographic images were obtained with 3D tomosyn thesis and utilizing computer aided detection (CAD). COMPARISON: Prior mammograms were reviewed. FINDINGS: There has been no significant change in the appearance and distribution of the fibroglandular tissue. Lumpectomy site in the right breast and excision biopsy site in the left breast remain stable in appe arance There are no new spiculated masses nor new malignant appearing microcalcification groups. There is no significant architectural distortion nor skin thickening-retraction. IMPRESSION: Stable benign-appearing findings. No radiographic evidence of malignancy. BI-RADS Category 2 - Benign Findings Breast Density - Category B - Scattered areas of fibroglandular density Breast density Category C or D implies that the patient has dense breast tissue. Dense breast tissue can make it harder to find cancer on a mammogram. Dense breast tissue is also associated with an incr eased risk of breast cancer. This information about the result of the mammogram report was provided to the patient to raise their awareness. Use this report when you speak with the patient about their risks for breast cancer, which includes their family history. At that time, you may recommend additional screening tests (Ultrasoun d or MRI) as these tests may add significant information. A negative radiographic report should not delay biopsy if a dominant or clinically suspicious mass is present. Up to ten percent of cancers are not identified on mammography. A negative report may reinforce clinical impression. Adenosis and dense breasts may obscure an underlying neoplasm. False positive reports average 6 to 10%. Patient will receive a letter notifying them of these results.
== END 2024-01-03 01:19 ==
LOC: DI 01:00
PROVIDERS: PCP Internal Medicine; Visit Provider Surgery
DX: Z12.31 Encounter for screening mammogram for malignant neoplasm of breast (principal); Z85.3 Personal history of malignant neoplasm of breast
CPT/HCPCS: 77063; 77067; 93306

== ENCOUNTER 2024-01-03 00:59 | Outpatient (CLI) | payer MEDICARE, SELFPAY ==
--- NOTE | 2024-01-03 10:30 | DI.US_ITS ---
APPROVED REPORT EXAM: Comprehensive 2D, Doppler, and color-flow Echocardiogram Patient Location: Out-Patient Tool [employer]aper Setup Operator: Charles Allred RDCS (AE) Indications: Check ascending aortic aneurysm Other Information Technically limited study due to body habitus, inability to position patient. Conclusion Normal left ventricular wall thickness and chamber size. Ejection fraction is 60 to 65%. Wall motio n is normal Normal right ventricular size and function Both atria are normal in size Aortic valve is mildly sclerotic and trileaflet with trace regurgitation Dilated ascending aorta measuring approximately 5 cm Wall motion Left Ventricle The left ventricle is normal size. The left ventricular systolic function is normal. The left ventric ular ejection fraction is within the normal range. There is normal left ventricular wall thickness. T here is normal LV segmental wall motion. There is no ventricular septal defect visualized. LVEF is 6 0-65%. Right Ventricle The right ventricle is normal size. The right ventricular systolic function is normal. Atria The left atrium size is normal. The right atrium size is normal. The interatrial septum is intact wit h no evidence for an atrial septal defect. Aortic Valve The aortic valve is mildly sclerotic. Aortic valve is trileaflet. There is no aortic valvular stenosi s. Trace aortic regurgitation. Mitral Valve The mitral valve is normal in structure. No evidence of mitral valve stenosis. There is no mitral michael ve regurgitation noted. Tricuspid Valve The tricuspid valve is normal in structure. There is no tricuspid valve stenosis. Trace tricuspid reg urgitation. Unable to assess PA pressure. Pulmonic Valve The pulmonary valve is normal in structure. There is no pulmonic valvular stenosis. Mild pulmonic reg urgitation. Great Vessels The aortic root is normal in size. The ascending aorta is severely dilated. Aortic arch is not well v isualized. IVC is normal in size and collapses >50% with inspiration. Pericardium There is no pericardial effusion. 2D Dimensions IVSD d PLAX 0.91 cm F: 0.6-1.0 Ao Root d 3.09 cm F: 2.7 - 3.3 LVPW d PLAX 0.89 cm F: 0.6 - 1.0 Ao Asc Diam d 4.99 cm F: 2.3 - 3.1 LVID d PLAX 4.56 cm F: 3.8 - 5.2 LVDs 3.53 cm F: 2.2 - 3.5 LV EF Teichholz 45.4 % FS 22.52 % LV EDV (Teich) 95.1 mL LV ESV (Teich) 51.9 mL Stroke Vol Index (Teich) 23.24 M-Mode TAPSE 1.56 cm (M/F) >1.7 Auto EF LV EDV A4C 86.9 mL LV EDV A2C 85.4 mL LV EDV BP 87.4 mL LV ESV A4C 47.6 mL LV ESV A2C 45.8 mL LV ESV BP 47.0 mL LVEF(%) A4C 45.2 % LVEF(%) A2C 46.4 % LVEF(%) BP 46.2 % LV SV A4C 39.3 ml LV SV A2C 39.7 ml LV SV BP 40.4 ml LV CO A4C 3.4 L/min LV CO A2C 3.7 L/min LV CO BP 3.5 L/min HR A4C 86.96 BPM HR A2C 92.27 BPM LV EDV Index (BP) LA Volume LA Length A4C 4.0 cm LA Length A2C 5.0 cm LA Area A4C s 10.06 cm2 LA Area A2C s 12.29 cm2 LA Vol A4C A-L 21.71 mL LA Vol A2C A-L 25.78 mL LA Vol Biplane A-L 26.5 mL LA Vol/BSA A4C A-L LA Vol/BSA A2C A-L LA Vol/BSA BP A-L 14.3 mL/m2 LA Vol A4C MOD 18.6 mL LA Vol A2C MOD 24.1 mL LA Vol BP MOD 23.7 mL LV Diastology MV E Vmax 1.22 (0.4-1.3 m/s) Aortic Valve AoV Vmax 1.02 m/s LVOT Vmax 0.84 m/s AoV Peak Grad 55.8 mmHg LVOT Peak Grad 2.8 mmHg AoV Area (Vmax) 2.18 cm2 LVOT VTI 0.180 m AoV VTI 0.228 m LVOT Mean Grad 1.3 mmHg AoV Mean [place]. 0.71 m/s LVOT SV 47.67 mL AoV Mean Grad 2.4 mmHg LVOT Diam s 1.80 cm AoV Area (VTI) 2.09 cm2 AV Regurg Peak Gr. 4.20 mmHg Velocity Ratio 0.82 AR Decel Mccone 2.0m/sec2 AR DT 2529 msec AR PHT 733 msec AR Vmax 5.18 m/s Mitral Valve MV Vmax TIPS 1.11 m/s MV Mean Grad 2.0 (<2mmHg) MV VTI 0.188 m Pulmonary Valve PV Vmax 0.60 (0.5-1.5 m/s) RVOT Vmax 0.62 m/s PV Peak Grad 1.4 mmHg RVOT Peak Gr. 1.6 mmHg PV Mean [place] 0.46 m/s RVOT VTI 0.123 m PV Mean Grad 0.9 mmHg RVOT Mean Gr. 0.8 mmHg
== END 2024-01-03 01:19 ==
LOC: DI 00:59
PROVIDERS: PCP Internal Medicine; Visit Provider Internal Medicine Cardiovascular Disease
DX: I71.21 Aneurysm of the ascending aorta, without rupture (principal)
CPT/HCPCS: 93306

== ENCOUNTER 2024-03-24 08:06 | Outpatient (CLI) | payer MEDICARE, SELFPAY ==
--- NOTE | 2024-03-24 08:00 | RT.EKG_ITS ---
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
== END 2024-03-24 08:07 | disposition home or self-care (01) ==
LOC: DI.CARD 08:07
PROVIDERS: PCP Internal Medicine; Visit Provider Internal Medicine Cardiovascular Disease
DX: I47.10 Supraventricular tachycardia, unspecified (principal)
CPT/HCPCS: 93010

== ENCOUNTER → 2024-03-24 13:25 | Outpatient (BNVA) | payer MEDICARE, SELFPAY | PROVIDERS: PCP Internal Medicine; Referring Provider Internal Medicine; Visit Provider Internal Medicine Cardiovascular Disease | DX: I71.21 Aneurysm of the ascending aorta, without rupture (principal); R94.31 Abnormal electrocardiogram [ECG] [EKG]; I10 Essential (primary) hypertension | CPT/HCPCS: 93005; 99214 ==

== ENCOUNTER 2024-04-18 08:11 | Outpatient (CLI) | payer MEDICARE, SELFPAY ==
--- NOTE | 2024-04-18 08:00 | RT.EKG_ITS ---
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
== END 2024-04-18 08:12 | disposition home or self-care (01) ==
LOC: DI.CARD 08:12
PROVIDERS: PCP Internal Medicine; Visit Provider Internal Medicine Cardiovascular Disease
DX: I47.10 Supraventricular tachycardia, unspecified
CPT/HCPCS: 93010

== ENCOUNTER → 2024-04-18 13:57 | Outpatient (BNVA) | payer MEDICARE, SELFPAY | PROVIDERS: PCP Internal Medicine; Visit Provider Internal Medicine Cardiovascular Disease | DX: I71.21 Aneurysm of the ascending aorta, without rupture (principal); I10 Essential (primary) hypertension | CPT/HCPCS: 93005; 99213 ==

== ENCOUNTER → 2024-10-19 12:59 | Outpatient (BNVA) | payer MEDICARE, SELFPAY | PROVIDERS: PCP Internal Medicine; Referring Provider Internal Medicine; Visit Provider Internal Medicine Cardiovascular Disease | DX: I71.21 Aneurysm of the ascending aorta, without rupture (principal); I10 Essential (primary) hypertension | CPT/HCPCS: 99213 ==

== ENCOUNTER 2024-11-14 01:35 | Outpatient (CLI) | payer MEDICARE, SELFPAY ==
--- NOTE | 2024-11-14 11:09 | DI.MAMMO_ITS ---
Exam(s) MG MAMMO SCREENING 60 MIN DUR EXAM: MG MAMMO SCREENING 60 MIN DUR CLINICAL HISTORY: SCREENING MAMMO, HX BREAST CANCER. TECHNIQUE: Bilateral full field digital CC and MLO mammographic images were obtained with 3D tomosynthesis and utilizing computer aided detection (CAD). COMPARISON: Prior mammograms were reviewed. FINDINGS: There has been no significant change in the appearance and distribution of the fibroglandular tissue. Lumpectomy sites in both breasts remain stable. No evidence of recurrent masses. No malignant-appearing microcalcification groups. There are no new spiculated masses nor new malignant appearing microcalcification groups. There is no significant architectural distortion nor skin thickening-retraction. IMPRESSION: No radiographic evidence of malignancy. Stable appearance of the bilateral lumpectomy sites. BI-RADS Category 1 - Negative Breast Density - Category B - There are scattered areas of fibroglandular density. Breast density Category C or D implies that the patient has dense breast tissue. Dense breast tissue can make it harder to find cancer on a mammogram. Dense breast tissue is also associated with an increased risk of breast cancer. This information about the result of the mammogram report was provided to the patient to raise their awareness. Use this report when you speak with the patient about their risks for breast cancer, which includes their family history. At that time, you may recommend additional screening tests (Ultrasound or MRI) as these tests may add significant information. A negative radiographic report should not delay biopsy if a dominant or clinically suspicious mass is present. Up to ten percent of cancers are not identified on mammography. A negative report may reinforce clinical impression. Adenosis and dense breasts may obscure an underlying neoplasm. False positive reports average 6 to 10%. Patient will receive a letter notifying them of these results.
== END 2024-11-14 01:55 ==
LOC: DI 01:35
PROVIDERS: PCP Internal Medicine; Visit Provider Surgery
DX: Z12.31 Encounter for screening mammogram for malignant neoplasm of breast (principal); R92.323 Mammographic fibroglandular density, bilateral breasts
CPT/HCPCS: 77063; 77067

== ENCOUNTER → 2025-03-05 00:41 | Outpatient (CLI) | payer MEDICARE, SELFPAY ==
--- NOTE | 2025-03-05 06:15 | DI.CT_ITS ---
Exam(s) CT CHEST WO EXAM: CT CHEST WO CLINICAL HISTORY: Check aortic dimension,thoracic ascending aortic aneurysm,hypertension,i10, TECHNIQUE: Imaging Protocol: Axial computed tomography images with coronal and sagittal reformatted images were created and reviewed. Computer aided detection (CAD) was utilized. CONTRAST MATERIAL: Intravenous: Omnipaque 350 Contrast volume:structured data ml. COMPARISON: CT CT THORAX CTA from 05/26/2022 FINDINGS: Pulmonary parenchyma: No consolidation. No dominant measurable mass. Tracheobronchial tree: No bronchiectasis or mucous plugging. Mediastinum and Sujey: No dominant adenopathy or fluid collection. Moderate-sized hiatal hernia again noted. Pleura: No effusion. No pneumothorax. Heart: The heart is not dilated. No mild coronary artery calcifications are seen. There is a trace pericardial effusion. Aorta: Thoraci ascending thoracic aorta measures 5.0 X 5.5 cm, increasing in size from the prior exam were was measured at 4.8 cm. Descending aorta measures 3.1 cm. Mild atherosclerotic changes. Pulmonary arteries: No gross evidence of emboli. Upper abdomen: No acute findings. Liver cysts. Bones: Degenerative changes in the spine. Soft tissues: Unremarkable. IMPRESSION: Increase in size of ascending thoracic aorta to 5.5 cm. RADIATION DOSE DELIVERED: 252.79mGy.cm Total DLP DATA REPOSITORY: All CT scans at this facility are submitted to the National Radiology Data Registry (NRDR) Dose Index Registry (DIR) with the [employer] (ACR). RADIATION OPTIMIZATION: All CT scans at this facility use at least one of these dose optimization techniques: automated exposure control; mA and/or kV adjustment per patient size (includes targeted exams where dose is matched to clinical indication); or iterative reconstruction.
== END ==
LOC: DI 00:41
PROVIDERS: PCP Internal Medicine; Visit Provider Internal Medicine Cardiovascular Disease
DX: I71.21 Aneurysm of the ascending aorta, without rupture (principal); I10 Essential (primary) hypertension
CPT/HCPCS: 71250